=== PATIENT | female | born 1940 | race Caucasian/White ===

== ENCOUNTER 2019-08-22 18:49 | Inpatient (IN) | payer MEDICARE, OTHER ==
[~2019-08-22] VITALS: Ht 160 cm; Wt 97.1 kg
[2019-08-22 19:50] LABS: BILIRUBIN,URINE NEG (NEG); CLARITY,URINE CLEAR; COLOR,URINE YELLOW; GLUCOSE,URINE NEG (NEG)
[2019-08-22 19:51] LABS: BACTERIA,URINE FEW /HPF (0-FEW); HYALINE CASTS, URINE OCC /HPF; NITRITE,URINE NEG (NEG); RBC,URINE RARE /HPF (0-2); SQUAMOUS EPITHELIAL CELL,UR OCC /LPF; UROBILINOGEN,URINE 0.2 mg/dL (0.2 mg/dL)
--- NOTE | 2019-08-22 19:58 | PHYS DOC ---
Past History Past Medical History: Anxiety, COPD, Dementia, GERD, Hypothyroid, Other Additional Past Medical Histor: CROHNS Past Surgical History: No Surgical History Alcohol Use: None Drug Use: None Adult General Chief Complaint Chief Complaint: MEDICAL CLEARANCE HPI HPI Patient is a 79-year-old female brought in by ambulance who basically is here for medical clearance so that she can be admitted to the behavioral health unit she has had increasing agitation trying to get to the exit at her nursing facility etc. etc. was compliant with treatment no trauma patient denies complaints Review of Systems Review of Systems Constitutional: Denies fever or chills [] Eyes: Denies change in visual acuity, redness, or eye pain [] HENT: Denies nasal congestion or sore throat [] Respiratory: Denies cough or shortness of breath [] Cardiovascular: No additional information not addressed in HPI [] GI: Denies abdominal pain, nausea, vomiting, bloody stools or diarrhea [] : Denies dysuria or hematuria [] Musculoskeletal: Denies back pain or joint pain [] Integument: Denies rash or skin lesions [] Neurologic: Denies headache, focal weakness or sensory changes [] Endocrine: Denies polyuria or polydipsia [] All other systems were reviewed and found to be within normal limits, except as documented in this note. Allergies Allergies Allergies Coded Allergies Type Severity Reaction Last Updated Verified Penicillins Allergy Unknown 08/22/19 Yes acetaminophen Allergy Unknown 08/22/19 Yes cephalexin Allergy Unknown 08/22/19 Yes codeine Allergy Unknown 08/22/19 Yes methylprednisolone Allergy Unknown 08/22/19 Yes prednisone Allergy Unknown 08/22/19 Yes Physical Exam Physical Exam Constitutional: Well developed, well nourished, no acute distress, non-toxic appearance. [] HENT: Normocephalic, atraumatic, bilateral external ears normal, oropharynx moist, no oral exudates, nose normal. [] Eyes: PERRLA, EOMI, conjunctiva normal, no discharge. [] Neck: Normal range of motion, no tenderness, supple, no stridor. [] Lungs & Thorax: Bilateral breath sounds clear to auscultation [] Abdomen: Bowel sounds normal, soft, no tenderness, no masses, no pulsatile masses. [] Skin: Warm, dry, no erythema, no rash. [] Back: No tenderness, no CVA tenderness. [] Extremities: No tenderness, no cyanosis, no clubbing, ROM intact, no edema. [] Neurologic: Alert and oriented 2, normal motor function, normal sensory function, no focal deficits noted. [] Psychologic: Affect normal, judgement normal, mood normal. [] Current Patient Data Vital Signs Vital Signs Date Time Temp Pulse Resp B/P (MAP) Pulse Ox O2 Delivery O2 Flow Rate FiO2 08/22/19 18:49 97.9 98 16 95 Room Air Lab Results Laboratory Tests Test 08/22/19 19:25 Urine Collection Type Unknown Urine Color Yellow Urine Clarity Clear Urine pH 5.5 Urine Specific Ranger 1.020 Urine Protein Neg (NEG-TRACE) Urine Glucose (UA) Neg mg/dL (NEG) Urine Ketones (Stick) Neg mg/dL (NEG) Urine Blood Neg (NEG) Urine Nitrite Neg (NEG) Urine Bilirubin Neg (NEG) Urine Urobilinogen Dipstick 0.2 mg/dL (0.2 mg/dL) Urine Leukocyte Esterase Trace (NEG) Urine RBC Rare /HPF (0-2) Urine WBC 1-4 /HPF (0-4) Urine Squamous Epithelial Cells Occ /LPF Urine Bacteria Few /HPF (0-FEW) Urine Hyaline Casts Occ /HPF EKG EKG []EKG shows a normal sinus rhythm rate of 92 no acute ischemic changes noted QTC 413 Radiology/Procedures Radiology/Procedures [] Course & Med Decision Making Course & Med Decision Making Pertinent Labs and Imaging studies reviewed. (See chart for details) []labs stable vitals stable pt calm and cooperative in the er medically clear for sbhu Dragon Disclaimer Dragon Disclaimer This electronic medical record was generated, in whole or in part, using a voice recognition dictation system. Departure Departure: Impression: Primary Impression: Dementia Disposition: 65 XFER TO PSYCH HOSP/UNIT Admitting Physician: Other Condition: STABLE Referrals: JACQUELINE ALFONSO MD (PCP) NOAH COCHRAN MD Aug 22, 2019 19:58
[2019-08-22 20:00] LABS: BASO % 0 % (0-3); EOS # 0.5 x10^3/uL (0.0-0.7); EOS % 7 % (0-3); HEMATOCRIT 36.9 % (36.0-47.0); HEMOGLOBIN 11.8 g/dL (12.0-15.5); LYMPH # 2.3 x10^3/uL (1.0-4.8); LYMPH % 33 % (24-48); MEAN CORPUSCULAR HEMOGLOBIN 29 pg (25-35); MEAN CORPUSCULAR HGB CONC 32 g/dL (31-37); MEAN CORPUSCULAR VOLUME 90 fL (79-100); MONO # 0.8 x10^3/uL (0.0-1.1); MONO % 12 % (0-9); NEUT # 3.4 x10^3uL (1.8-7.7); NEUT % 49 % (31-73); PLATELET COUNT 310 x10^3/uL (140-400); RED BLOOD COUNT 4.11 x10^6/uL (3.50-5.40); RED CELL DISTRIBUTION WIDTH 17.4 % (11.5-14.5)
[2019-08-22 20:17] LABS: ALBUMIN 3.4 g/dL (3.4-5.0); ALBUMIN/GLOBULIN RATIO 0.9 (1.0-1.7); CALCIUM 8.9 mg/dL (8.5-10.1); CREATININE 1.3 mg/dL (0.6-1.0); GFR 39.3; MAGNESIUM 2.1 mg/dL (1.8-2.4); POTASSIUM 4.4 mmol/L (3.5-5.1); TOTAL BILIRUBIN 0.2 mg/dL (0.2-1.0); TOTAL PROTEIN 7.4 g/dL (6.4-8.2)
--- NOTE | 2019-08-22 21:09 | EKG ---
[address] [address] Test Date: 2019-08-22 Test Time: 19:38:41 Pat Name: ANAHI BLANCA Department: Room: Gender: F [employer]: : 1940 Requested By: NOAH COCHRAN Order Number: [id number] Reading MD: Jr Solares MD Measurements Intervals [place] Rate: 92 P: 50 IL: 238 QRS: 28 QRSD: 72 T: 57 QT: 330 QTc: 413 Interpretive Statements SINUS RHYTHM PROLONGED [place] INTERVAL Electronically Signed On 08-23-2019 13:31:03 DOUBLE END [employer] OPERATOR by Jr Solares MD
[2019-08-22 21:35] VITALS: BP 155/93
[2019-08-22] MEDS ORDERED: POLYVINYL ALCOHOL 1.4% OPHTH SOLUTION 15ML BOTTLE. OU PRN (23:15)
[2019-08-22] MEDS ORDERED: FAMOTIDINE 20 MG TABLET PO PRN (23:15)
[2019-08-22] MEDS ORDERED: MAGNESIUM HYDROXIDE 2,400 MG/30 ML ORAL.SUSP. PO PRN (23:15)
[2019-08-22] MEDS ORDERED: MAGN400O7 PO (23:33)
[2019-08-22] MEDS ORDERED: BUSP30TA PO (23:33)
[2019-08-22] MEDS ORDERED: LEVO50TA5 PO (23:33)
[2019-08-22] MEDS ORDERED: LORA10TA3 PO (23:33)
[2019-08-22] MEDS ORDERED: POTA20TA4 PO (23:33)
[2019-08-22] MEDS ORDERED: SERT50TA PO (23:33)
[2019-08-22] MEDS ORDERED: POLY15DR27 EACHEYE (23:33)
[2019-08-22] MEDS ORDERED: FAMO20TA5 PO (23:33)
[2019-08-22] MEDS ORDERED: FURO40TA4 PO (23:33)
[2019-08-22] MEDS ORDERED: MELA3TAB43 PO (23:33)
[2019-08-22] MEDS ORDERED: MESA800T2 PO ×2 (23:33)
[2019-08-22] MEDS ORDERED: BUDE10.2 IH (23:33)
[2019-08-22] MEDS ORDERED: ALBU2.5V14 NEB (23:33)
[2019-08-22] MEDS ORDERED: TRAZ-120 PO (23:33)
[2019-08-22] MEDS ORDERED: ALBUTEROL SULFATE 2.5 MG/3 ML NEBU. NEB PRN (23:45)
[2019-08-23] MEDS ORDERED: ACETAMINOPHEN 325 MG TABLET PO PRN
[2019-08-23] MEDS ORDERED: METHYL SALICYLATE/MENTHOL TOPICAL OINTMENT 57GM TUBE. TP PRN
[2019-08-23] MEDS ORDERED: MAGNESIUM HYDROXIDE 2,400 MG/30 ML ORAL.SUSP. PO PRN
[2019-08-23] MEDS ORDERED: MAG HYDROX/AL HYDROX/SIMETH 30 ML ORAL.SUSP PO PRN
[2019-08-23 06:13] VITALS: BP 127/73
[2019-08-23] MEDS: busPIRone 15 MG TABLET. PO SCH ×2 (08:30→19:45)
[2019-08-23] MEDS: POTASSIUM CHLORIDE 20 MEQ TABLET.ER. PO SCH (08:31)
[2019-08-23] MEDS: FUROSEMIDE 40 MG TABLET PO SCH (08:31)
[2019-08-23] MEDS: LEVOTHYROXINE 50 MCG TABLET PO SCH (08:31)
[2019-08-23] MEDS: CETIRIZINE HCL 10 MG TABLET PO SCH (08:31)
[2019-08-23] MEDS: MESALAMINE 400 MG CAP.DRTAB. PO SCH ×2 (09:11→19:46)
[2019-08-23] MEDS: BUDESONIDE 0.5 MG/2 ML NEBU NEB SCH ×2 (12:14→20:00)
[2019-08-23] MEDS: ALBUTEROL SULFATE 2.5 MG/3 ML NEBU. NEB SCH ×2 (12:15→14:44)
--- NOTE | 2019-08-23 12:29 | CONS ---
DATE OF CONSULTATION: REASON FOR CONSULTATION: Medical management. HISTORY OF PRESENT ILLNESS: The patient an 79-year-old female patient, resident at [facility], who was admitted on account of being angry, agitated, exit seeking, restless, not redirectable, has insomnia, banging on doors, anxious, threatens to call police, verbally yelling out, all this in a background of major neurocognitive disorder. She is here for inpatient psychiatric stabilization. PAST MEDICAL HISTORY: Significant for chronic obstructive pulmonary disease, hypothyroidism, gastroesophageal reflux disease, Crohn's disease and insomnia. PAST SURGICAL HISTORY: Significant for appendectomy. ALLERGIES: She is allergic to PENICILLIN, ACETAMINOPHEN, CEPHALEXIN, CODEINE, METHYLPREDNISONE, PREDNISOLONE and PREDNISONE. MEDICATIONS: She is currently on following medications: She is on loratadine 10 mg once a day, albuterol sulfate 2.5 mg in 0.5 mL by nebulizer 4 times a day, sertraline or Zoloft 50 mg at bedtime, trazodone 50 mg at bedtime, buspirone 30 mg twice a day, potassium chloride 20 mEq daily, furosemide 40 mg once a day, Symbicort 160/4.5 two puffs twice a day, polyvinyl alcohol 1 drop to both eyes 4 times a day, famotidine 20 mg daily, magnesium hydroxide or milk of magnesia 30 mL p.o. daily p.r.n. for constipation, mesalamine 1600 mg daily, mesalamine 800 mg at bedtime. She is also on levothyroxine sodium 50 mcg once a day and melatonin 3 mg at bedtime. FAMILY HISTORY: Unremarkable. SOCIAL HISTORY: She is , has 2 sons. She does not smoke, drink alcohol or use any recreational drugs. REVIEW OF SYSTEMS: As per history of present illness. PHYSICAL EXAMINATION GENERAL: When I examined her this morning, she looked well and was clearly in no apparent respiratory distress, slightly pale. No jaundice, cyanosis, or thyromegaly. No jugular venous distension. No lower limb edema. VITAL SIGNS: Her heart rate was 79, blood pressure was 127/73, temperature was 97.6, respiratory rate was 22 and oxygen saturation was 91%. HEAD, EYES, EARS, NOSE AND THROAT: Showed normocephalic, atraumatic. NECK: Supple. HEART: Showed normal first and second heart sounds. No gallop or murmur. CHEST: Clear to auscultation. No crepitation or rhonchi. ABDOMEN: Markedly distended, soft, nontender. NEUROLOGIC: She was clearly demented, but all her cranial nerves are intact. EXTREMITIES: She moves extremities without difficulty. She ambulates with a walker. LABORATORY WORK: Showed that her white cell count was 7000, hemoglobin 12, hematocrit 36, MCV 90 and platelet count 310,000 with normal manual differential. Her chemistry showed a serum sodium 141, potassium 4.4, chloride 103, bicarbonate 32, anion gap of 6, BUN 13, creatinine 1.3, estimated GFR was 39 mL per minute. Her glucose was 87, calcium was 8.9, magnesium was 2.1. Total bilirubin, AST, ALT, alkaline phosphatase were normal. Total protein was 7.4, albumin was 3.4. Her urinalysis was essentially unremarkable. IMPRESSION: In summary, this is an 79-year-old female patient, resident at [facility], who was admitted on account of being angry, agitated, exit seeking, restless, not redirectable, banging on doors, anxious, threatens to call police, verbally yelling out all this in a background of major neurocognitive disorder. Medically, she has multiple medical problems including: A. Chronic obstructive pulmonary disease. B. Hypothyroidism. C. Gastroesophageal reflux disease. D. Crohn's disease. Medically, the patient seems to be all in all stable. Her vital signs are all within normal range as well as her lab works. I reviewed all her medication and her lab works and seemed to be appropriate and within acceptable range. I will follow obviously other lab works that are still pending and make any necessary recommendation. Thank you, Dr. Tabares for allowing me to participate in the care of this patient. JACQUELINE ALFONSO MD DR: SHANA/caryn JOB#: [id number] / [id number]
[2019-08-23 14:57] LABS: THYROID STIM HORMONE (TSH) 3.371 uIU/mL (0.358-3.740)
[2019-08-23 16:01] VITALS: BP 127/79
[2019-08-23 17:07] LABS: THYROXINE 7.4 ug/dL (4.5-12.0)
[2019-08-23] MEDS: risperiDONE 0.5 MG TABLET. PO PRN (17:08)
[2019-08-23] MEDS: traZODone 50 MG TABLET. PO SCH (19:45)
[2019-08-23] MEDS: DIVALPROEX 125 MG CAP.SPRINK PO SCH (19:45)
[2019-08-23] MEDS: SERTRALINE 50 MG TABLET. PO SCH (19:45)
[2019-08-23] MEDS: MELATONIN 3 MG TABLET PO SCH (19:45)
[2019-08-24 01:07] LABS: HEMOGLOBIN A1C 5.8 % (4.8-5.6)
--- NOTE | 2019-08-24 01:12 | PSYEV ---
DATE OF SERVICE: 08/22/2019 REASON FOR ADMISSION: This 79-year-old single female was admitted to inpatient program at [facility] from [facility] because of increased behavior problems, agitation, exit-seeking behaviors, restlessness and difficult to redirect, not sleeping and banging on the doors and also threatening to call the police and verbally abusive towards staff. CHIEF COMPLAINT: I am not a patient here, I am a visitor and she kept repeating not accepting that she is in the hospital that she is a patient. The patient also gets angry easily, poor impulse control, low frustration tolerance. HISTORY OF PRESENT ILLNESS: The patient has been a resident at [place] for a period of time, but the patient's behavior has worsened lately to the point she is unable to be managed there and not responding to any change in the medications. The patient apparently was seen by Dr. Tabares recent past and he is trying to adjust her medications. The patient since admission is exhibiting racing thoughts, increased agitation, hostile towards staff, very paranoid and suspicious and not trusting anyone and not accepting that she is a patient here. The patient also constantly pacing, walks with a walker. The patient apparently has a fairly intact remote memory, but significant short-term memory and confusion. The patient is unable to give much information except total denial that she has a problem. The patient is disoriented to surroundings. She did know that she was in the hospital. The patient was able to give much information with regard to her past. States that she was with 2 children. The patient also states two sisters and one brother. The patient also agitated easily, manic like behaviors. The patient denied of any alcoholism or any tobacco use in the past. PAST MEDICAL HISTORY: The patient has a history of COPD, hypothyroidism, Crohn's disease, chronic insomnia and GERD. ALLERGIES: THE PATIENT IS ALLERGIC TO PENICILLIN, ACETAMINOPHEN, CEPHALEXIN, CODEINE, METHYLPREDNISOLONE, PREDNISONE, AND PREDNISOLONE. CURRENT MEDICATIONS: Include Depakote 125 mg t.i.d., mesalamine 800 mg at night, melatonin 3 mg at night, trazodone 50 mg at night, Zoloft 50 mg at night, Risperdal 0.5 mg q. 6 hours p.r.n. The patient is also on mesalamine 1600 mg daily, Zyrtec 10 mg daily, BuSpar 30 mg b.i.d., potassium chloride 20 mEq daily, Lasix 40 mg daily, Ventolin 2.5 mg 4 times a day. She is also on Pulmicort 0.5 mg b.i.d., levothyroxine 50 mcg daily. She is also on Pepcid 20 mg daily p.r.n. The patient's lab reviewed. The patient's hemoglobin 11.8. The patient's creatinine level 1.3, iron 31, triglycerides 169, cholesterol 244, LDL 138, HDL 73. TSH was 3.3. PSYCHOSOCIAL HISTORY: The patient was not able to give much information except she is able to recall about her family members, she said she had two sisters and a brother. The patient also gets paranoid when she is asked about any questions, does not want to answer. The patient also has some grandiose ideations. FAMILY HISTORY: Noncontributory. MENTAL STATUS EXAMINATION: The patient appeared to be of her stated age, casually dressed, moderately obese, able to walk with a walker. The patient denies of any falls. Her speech was clear, monotone, decreased rate and rhythm. Her affect and mood showed she is comfortable by herself and able to talk to others, but when she was asked about her problems or questions, she gets more confused, more anxious, and irritable. The patient is also exhibiting paranoid ideation. The patient was able to orient herself to her surroundings. The patient's total denial stating that she is not in the hospital and she is a visitor and she is not a patient. The patient is unable to elaborate why she is making statements like that. The patient also gets annoyed easily when asked questions. The patient was not able to do serial 7's. The patient is disoriented, but able to say 08/2019 that was correct, did not know the date. The patient was able to recall 2/4 objects in 5 minutes. The patient admits to having racing thoughts. The patient also having problems with concentration and thinking. The patient's judgment is impaired, insight minimal. The patient appears to be functioning on an average level of intelligence. STRENGTHS: Fairly in good health, able to walk, able to communicate. WEAKNESSES: The patient is in total denial about her problems gets suspicious, paranoia, irritability, also somewhat threatening. ADMITTING DIAGNOSES: AXIS I: 1. 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 2. Anxiety disorder, unspecified. 3. Impulse control disorder, unspecified. AXIS II: None. AXIS III: Hypothyroidism, chronic obstructive pulmonary disease, Crohn's disease, gastroesophageal reflux disease, chronic insomnia. INITIAL TREATMENT PLAN: The patient will be admitted to the inpatient program. The patient will be seen by Dr. Colindres for her physical problems and will be seen by the psychiatrist daily. The patient will continue on the current medication listed above. The patient will be encouraged in all the activities including individual therapy, group therapy, activity therapy. LENGTH OF STAY: 7-10 days. YOEL ODONNELL MD DR: JUANA/caryn JOB#: [id number] / [id number]
[2019-08-24] MEDS: LEVOTHYROXINE 50 MCG TABLET PO SCH (05:43)
[2019-08-24 06:12] VITALS: BP 142/85
[2019-08-24] MEDS: busPIRone 15 MG TABLET. PO SCH ×2 (08:20→20:39)
[2019-08-24] MEDS: DIVALPROEX 125 MG CAP.SPRINK PO SCH ×3 (08:20→20:39)
[2019-08-24] MEDS: CETIRIZINE HCL 10 MG TABLET PO SCH (08:21)
[2019-08-24] MEDS: FUROSEMIDE 40 MG TABLET PO SCH (08:21)
[2019-08-24] MEDS: MESALAMINE 400 MG CAP.DRTAB. PO SCH ×2 (08:21→20:39)
[2019-08-24] MEDS: POTASSIUM CHLORIDE 20 MEQ TABLET.ER. PO SCH (08:21)
[2019-08-24] MEDS: BUDESONIDE 0.5 MG/2 ML NEBU NEB SCH ×2 (08:55→23:07)
[2019-08-24] MEDS: ALBUTEROL SULFATE 2.5 MG/3 ML NEBU. NEB SCH ×4 (08:55→23:07)
[2019-08-24] MEDS: risperiDONE 0.5 MG TABLET. PO PRN (15:10)
[2019-08-24 16:54] VITALS: BP 118/63
[2019-08-24] MEDS: traZODone 50 MG TABLET. PO SCH (20:39)
[2019-08-24] MEDS: MELATONIN 3 MG TABLET PO SCH (20:39)
[2019-08-24] MEDS: SERTRALINE 50 MG TABLET. PO SCH (20:39)
[2019-08-25] MEDS: LEVOTHYROXINE 50 MCG TABLET PO SCH (05:54)
[2019-08-25 05:58] VITALS: BP 122/78
[2019-08-25] MEDS: ALBUTEROL SULFATE 2.5 MG/3 ML NEBU. NEB SCH ×4 (06:06→22:56)
[2019-08-25] MEDS: MESALAMINE 400 MG CAP.DRTAB. PO SCH ×2 (08:36→20:13)
[2019-08-25] MEDS: POTASSIUM CHLORIDE 20 MEQ TABLET.ER. PO SCH (08:36)
[2019-08-25] MEDS: DIVALPROEX 125 MG CAP.SPRINK PO SCH ×3 (08:36→20:13)
[2019-08-25] MEDS: CETIRIZINE HCL 10 MG TABLET PO SCH (08:36)
[2019-08-25] MEDS: FUROSEMIDE 40 MG TABLET PO SCH (08:36)
[2019-08-25] MEDS: busPIRone 15 MG TABLET. PO SCH ×2 (08:36→20:13)
[2019-08-25] MEDS ORDERED: CHOLECALCIFEROL (VITAMIN D3) 50,000 UNIT CAPSULE PO SCH (09:00)
--- NOTE | 2019-08-25 09:21 | PN ---
DATE: 08/24/2019 SUBJECTIVE: The patient was seen today, met with the staff, chart reviewed. The patient continues to show behavior problems, threatening to leave, exit-seeking behaviors. She was confused most of the day, still claiming that she is a visitor here, not a patient. The patient was also augmentative, easily agitated and noncompliant with the treatment. OBSERVATION: Vital Signs: Temperature 98.2, blood pressure 142/185, pulse 75, respirations 20, O2 sat 95%. Slept about 7 hours last night. CURRENT MEDICATIONS: Include Depakote 125 mg t.i.d., melatonin 3 mg at night, trazodone 50 mg at night, Zoloft 50 mg at night, Risperdal 0.5 mg q. 6 hours p.r.n., buspirone 30 mg b.i.d. The patient showed some response to the Depakote. We will continue to evaluate. We will increase dose accordingly LABORATORY DATA: The patient's lab reviewed. ASSESSMENT: 1. 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 2. Anxiety disorder, unspecified. 3. Impulse control disorder, unspecified. PLAN: Continue with the current treatment plan. We will adjust the medication accordingly. LENGTH OF STAY: 7-10 days. YOEL ODONNELL MD DR: JUANA/caryn JOB#: [id number] / [id number]
[2019-08-25] MEDS: BUDESONIDE 0.5 MG/2 ML NEBU NEB SCH ×2 (09:58→22:56)
--- NOTE | 2019-08-25 10:28 | TX PLAN ---
Interdisciplinary Tx Plan Admission Information Aug 22, 2019 at 21:01 Legal Status (on Admission): Voluntary, DPOA DPOA/Guardian Name: Pérez Perez ANGELCLARKE Contact or [phone] (C) Other Contact Name: [facility] Other Contact Verified Code Status: DNR Allergies: Coded Allergies: acetaminophen (Verified Allergy, Intermediate, 08/23/19) TYLENOL#3 codeine (Verified Allergy, Intermediate, 08/23/19) TYLENOL #3 Penicillins (Verified Allergy, Unknown, 08/22/19) cephalexin (Verified Allergy, Unknown, 08/22/19) methylprednisolone (Verified Allergy, Unknown, 08/22/19) prednisone (Verified Allergy, Unknown, 08/22/19) Estimated Length of Stay: 10 Diagnoses Primary Diagnosis: Major Neurocognitive Disorder, Alzheimers Vascular with Delusions, Depression BD, Anxiety Disorder Unspecified, Impulse Control Disorder Unspecified Reasons for Admission: Aggressive, Agitated, Sig. 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 Pt. reports pt. got "super agitated" stated she was going home. Pt. feels he "works her up" due to always wanting to go home with him. Problems Active Problems: Per pt. intake, pt. was angry, agitated, exit seeking, restlessness, not redirectable, insomnia, banging on doors, anxious, threatens to call police, and verbally yelling out. Inactive Problems: Pt. is medication compliant. Pt Strengths/Limitations Ability for [place]: Poor Cognitive Functioning/Ability: Poor Communication Skills/Ability: Fair Financial Resources: Fair Insight/Judgement: Poor Intellectual Ability: Fair Physical Health: Poor Social Skills: Fair Stability in Family: Good Verbal Skills: Fair Discharge Criteria Discharge Criteria: Improved behavior, Improved mood/thought Preliminary Discharge Plan Preliminary DC Plan: Current Living Arrange. Special Precautions Special Precautions: Agitation/Assault Fall Risk: Moderate Initial D/C Plan Pt. will return to [facility] once stable. Identified Discharge Needs: Pt. will need follow up with PCP. Currently Utilized Resources Currently Utilized Resources/P: PCP - Dr. Ruff Psychiatrist - Dr. Tabares Identified Problems/Hx/Goals Objectives/Short-Term Goals Short Term Goals: Dec. Aggression, Dec. 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 Pt. reports pt. got "super agitated" stating she was going home. Pt. feels he "works her up" due to always wanting to go home with him. 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 Education: Pt. graduated from high school. Community Follow-up Pt. will need a follow up with her PCP. Community Provider/Family Inpu: Per pt. , "I hope they can get her mellowed out." "I don't want her to be a zombie." Treatment Plan Explained Patient/Spring Setter had this treatment plan explained to him/her as indicated by the signature below and has been given the opportunity to ask questions and make suggestions: Date: Patient/Spring Setter Signature: Patient/Spring Setter Decline: MELISSA Pan Aug 25, 2019 10:28
[2019-08-25 15:59] VITALS: BP 129/76
[2019-08-25] MEDS: risperiDONE 0.5 MG TABLET. PO PRN (16:07)
[2019-08-25] MEDS: SERTRALINE 50 MG TABLET. PO SCH (20:13)
[2019-08-25] MEDS: MELATONIN 3 MG TABLET PO SCH (20:13)
[2019-08-25] MEDS: risperiDONE 1 MG TABLET. PO SCH (20:14)
[2019-08-25] MEDS: traZODone 50 MG TABLET. PO SCH (20:14)
[2019-08-25] MEDS ORDERED: risperiDONE 2 MG TABLET. PO SCH (21:00)
--- NOTE | 2019-08-26 04:47 | PN ---
DATE: 08/25/2019 SUBJECTIVE: The patient was seen today, met with the staff, chart reviewed. Staff reports continued behavior problems, argumentative, demanding, increased confusion and also able to calm down and now she is able to hold a reasonable conversation and also she is much calmer and compliant with the treatment and taking her medications. OBSERVATION: VITAL SIGNS: Temperature 98, blood pressure 122/78, pulse 88, respirations 18, O2 sat 92%. GENERAL: Slept about 6 hours last night. The patient's appetite is good. The patient is not having any major physical complaints. LABORATORY DATA: The patient's lab reviewed. MEDICATIONS: The patient's current medications include Depakote 125 mg t.i.d., melatonin 3 mg at night, trazodone 50 mg at night, Zoloft 50 mg at night, Risperdal 0.5 mg q. 6 hours p.r.n., BuSpar 30 mg b.i.d. The patient is not having any side effects. ASSESSMENT: 1. Major neurocognitive disorder, most likely Alzheimer versus vascular with delusions, depression, behavioral disturbances. 2. Anxiety disorder, unspecified. 3. Impulse control disorder, unspecified. PLAN: To continue with the current treatment plan. LENGTH OF STAY: 7-10 days. YOEL ODONNELL MD DR: JUANA/caryn JOB#: [id number] / [id number]
[2019-08-26] MEDS: LEVOTHYROXINE 50 MCG TABLET PO SCH (05:11)
[2019-08-26 06:04] VITALS: BP 121/58
[2019-08-26] MEDS: DIVALPROEX 125 MG CAP.SPRINK PO SCH ×2 (08:07→21:12)
[2019-08-26] MEDS: risperiDONE 1 MG TABLET. PO SCH ×2 (08:07→21:12)
[2019-08-26] MEDS: MESALAMINE 400 MG CAP.DRTAB. PO SCH ×2 (08:08→21:13)
[2019-08-26] MEDS: POTASSIUM CHLORIDE 20 MEQ TABLET.ER. PO SCH (08:08)
[2019-08-26] MEDS: busPIRone 15 MG TABLET. PO SCH ×2 (08:08→21:12)
[2019-08-26] MEDS: CETIRIZINE HCL 10 MG TABLET PO SCH (08:08)
[2019-08-26] MEDS: FUROSEMIDE 40 MG TABLET PO SCH (08:08)
[2019-08-26] MEDS: BUDESONIDE 0.5 MG/2 ML NEBU NEB SCH ×2 (10:15→20:00)
[2019-08-26] MEDS: ALBUTEROL SULFATE 2.5 MG/3 ML NEBU. NEB SCH ×4 (10:15→22:03)
[2019-08-26] MEDS: risperiDONE 0.5 MG TABLET. PO PRN (13:47)
[2019-08-26 15:33] VITALS: BP 122/68
[2019-08-26] MEDS: SERTRALINE 50 MG TABLET. PO SCH (21:12)
[2019-08-26] MEDS: traZODone 50 MG TABLET. PO SCH (21:13)
[2019-08-26] MEDS: MELATONIN 3 MG TABLET PO SCH (21:13)
--- NOTE | 2019-08-27 04:37 | PN ---
DATE: 08/26/2019 SUBJECTIVE: The patient was seen today, met with the staff, chart reviewed. The patient continues to have problems, fluctuating mood, irritability, angry outburst. The patient also with brief periods of stability, more coherent, able to hold a conversation. OBSERVATION: VITAL SIGNS: Temperature 97.6, blood pressure 121/58, pulse 85, respirations 20, O2 sat 90%. GENERAL: Slept about 6 hours last night. The patient is not having any side effects. The patient has not had any falls since admission. ASSESSMENT: 1. 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 2. Anxiety disorder, unspecified. 3. Impulse control disorder, unspecified. PLAN: To continue with the treatment. LENGTH OF STAY: 7-10 days. YOEL ODONNELL MD DR: JUANA/caryn JOB#: [id number] / [id number]
[2019-08-27] MEDS: LEVOTHYROXINE 50 MCG TABLET PO SCH (05:45)
[2019-08-27 06:15] VITALS: BP 133/67
[2019-08-27] MEDS: ALBUTEROL SULFATE 2.5 MG/3 ML NEBU. NEB SCH ×4 (06:17→20:02)
[2019-08-27 07:47] LABS: ALBUMIN 2.8 g/dL (3.4-5.0); ALBUMIN/GLOBULIN RATIO 0.8 (1.0-1.7); ALK PHOS 83 U/L (46-116); ALT (SGPT) 12 U/L (14-59); ANION GAP 4 (6-14); AST (SGOT) 14 U/L (15-37); BASO % 0 % (0-3); BLOOD UREA NITROGEN 14 mg/dL (7-20); BUN/CREATININE RATIO 13 (6-20); CALCIUM 8.4 mg/dL (8.5-10.1); CARBON DIOXIDE 31 mmol/L (21-32); CHLORIDE 106 mmol/L (98-107); CREATININE 1.1 mg/dL (0.6-1.0); EOS # 0.4 x10^3/uL (0.0-0.7); EOS % 7 % (0-3); GFR 47.7; GLUCOSE 81 mg/dL (70-99); HEMATOCRIT 35.1 % (36.0-47.0); HEMOGLOBIN 11.1 g/dL (12.0-15.5); LYMPH # 1.6 x10^3/uL (1.0-4.8); LYMPH % 32 % (24-48); MEAN CORPUSCULAR HEMOGLOBIN 29 pg (25-35); MEAN CORPUSCULAR HGB CONC 32 g/dL (31-37); MEAN CORPUSCULAR VOLUME 91 fL (79-100); MONO # 0.5 x10^3/uL (0.0-1.1); MONO % 10 % (0-9); NEUT # 2.6 x10^3uL (1.8-7.7); NEUT % 50 % (31-73); PLATELET COUNT 294 x10^3/uL (140-400); POTASSIUM 4.1 mmol/L (3.5-5.1); RED BLOOD COUNT 3.87 x10^6/uL (3.50-5.40); RED CELL DISTRIBUTION WIDTH 17.5 % (11.5-14.5); SODIUM 141 mmol/L (136-145); TOTAL BILIRUBIN 0.3 mg/dL (0.2-1.0); TOTAL PROTEIN 6.5 g/dL (6.4-8.2); WHITE BLOOD COUNT 5.2 x10^3/uL (4.0-11.0)
[2019-08-27 07:56] LABS: VAL ACID 45 mcg/mL (50-100)
[2019-08-27] MEDS: busPIRone 15 MG TABLET. PO SCH ×2 (08:19→19:47)
[2019-08-27] MEDS: MESALAMINE 400 MG CAP.DRTAB. PO SCH ×2 (08:19→19:46)
[2019-08-27] MEDS: POTASSIUM CHLORIDE 20 MEQ TABLET.ER. PO SCH (08:19)
[2019-08-27] MEDS: CETIRIZINE HCL 10 MG TABLET PO SCH (08:20)
[2019-08-27] MEDS: FUROSEMIDE 40 MG TABLET PO SCH (08:20)
[2019-08-27] MEDS: risperiDONE 1 MG TABLET. PO SCH ×2 (08:20→19:47)
[2019-08-27] MEDS: DIVALPROEX 125 MG CAP.SPRINK PO SCH ×2 (08:21→19:46)
[2019-08-27] MEDS: BUDESONIDE 0.5 MG/2 ML NEBU NEB SCH ×2 (10:08→20:02)
[2019-08-27 10:53] LABS: % ATYL 8 % (0-0); % EOS 4 % (0-5); % LYMPHS 29 % (24-48); % MONOS 5 % (0-10); % SEGS 54 % (35-66); PLT ESTIMATE ADEQUATE (ADEQUATE)
[2019-08-27 15:39] VITALS: BP 126/74
[2019-08-27] MEDS: SERTRALINE 50 MG TABLET. PO SCH (19:46)
[2019-08-27] MEDS: MELATONIN 3 MG TABLET PO SCH (19:46)
[2019-08-27] MEDS: traZODone 50 MG TABLET. PO SCH (19:47)
--- NOTE | 2019-08-28 01:07 | PN ---
DATE: 08/27/2019 SUBJECTIVE: The patient was seen today, met with the staff, chart reviewed. Staff reports continued behavior problems, restlessness, difficult to redirect, having some difficulty with sleep, non-redirectable. The patient continues to have problems with increased anxiety, agitation and exit-seeking behaviors. Otherwise, she is compliant with the medications. OBSERVATION: VITAL SIGNS: Temperature 97.6, blood pressure 121/58, pulse 85, respirations 20, O2 sat 90%. Slept about 6 hours last night. LABORATORY DATA: The patient's lab reviewed. MEDICATIONS: The patient's current medications include Risperdal 1.5 mg b.i.d., Depakote 250 mg b.i.d., melatonin 3 mg at night, trazodone 50 mg at night, Zoloft 50 mg at night, BuSpar 30 mg b.i.d. and she is also on Risperdal 0.5 mg q.6 hours p.r.n. The patient is not having any side effects. ASSESSMENT: 1. 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 2. Anxiety disorder, unspecified. 3. Impulse control disorder, unspecified. PLAN: To continue with the treatment. LENGTH OF STAY: 7-10 days. YOEL ODONNELL MD DR: JUANA/caryn JOB#: [id number] / [id number]
[2019-08-28 05:52] VITALS: BP 94/54
[2019-08-28] MEDS: LEVOTHYROXINE 50 MCG TABLET PO SCH (06:02)
[2019-08-28] MEDS: DIVALPROEX 125 MG CAP.SPRINK PO SCH ×2 (09:17→19:51)
[2019-08-28] MEDS: risperiDONE 1 MG TABLET. PO SCH ×2 (09:19→19:51)
[2019-08-28] MEDS: busPIRone 15 MG TABLET. PO SCH ×2 (09:19→19:51)
[2019-08-28] MEDS: POTASSIUM CHLORIDE 20 MEQ TABLET.ER. PO SCH (09:20)
[2019-08-28] MEDS: FUROSEMIDE 40 MG TABLET PO SCH (09:20)
[2019-08-28] MEDS: CETIRIZINE HCL 10 MG TABLET PO SCH (09:20)
[2019-08-28] MEDS: MESALAMINE 400 MG CAP.DRTAB. PO SCH ×2 (09:21→19:52)
[2019-08-28] MEDS: ALBUTEROL SULFATE 2.5 MG/3 ML NEBU. NEB SCH ×4 (10:56→20:53)
[2019-08-28] MEDS: BUDESONIDE 0.5 MG/2 ML NEBU NEB SCH ×2 (10:56→20:53)
[2019-08-28 16:13] VITALS: BP 119/77
[2019-08-28] MEDS: traZODone 50 MG TABLET. PO SCH (19:51)
[2019-08-28] MEDS: SERTRALINE 50 MG TABLET. PO SCH (19:52)
[2019-08-28] MEDS: MELATONIN 3 MG TABLET PO SCH (19:52)
[2019-08-29] MEDS: ALBUTEROL SULFATE 2.5 MG/3 ML NEBU. NEB SCH ×4 (05:13→22:03)
[2019-08-29] MEDS: BUDESONIDE 0.5 MG/2 ML NEBU NEB SCH ×2 (05:13→22:03)
[2019-08-29] MEDS: LEVOTHYROXINE 50 MCG TABLET PO SCH (05:14)
[2019-08-29 05:30] VITALS: BP 149/85
[2019-08-29] MEDS: busPIRone 15 MG TABLET. PO SCH ×2 (07:45→20:04)
[2019-08-29] MEDS: MESALAMINE 400 MG CAP.DRTAB. PO SCH ×2 (07:45→20:04)
[2019-08-29] MEDS: FUROSEMIDE 40 MG TABLET PO SCH (07:46)
[2019-08-29] MEDS: DIVALPROEX 125 MG CAP.SPRINK PO SCH ×2 (07:46→20:04)
[2019-08-29] MEDS: risperiDONE 1 MG TABLET. PO SCH ×2 (07:46→20:04)
[2019-08-29] MEDS: POTASSIUM CHLORIDE 20 MEQ TABLET.ER. PO SCH (07:46)
[2019-08-29] MEDS: CETIRIZINE HCL 10 MG TABLET PO SCH (07:47)
--- NOTE | 2019-08-29 10:00 | PN ---
DATE: 08/28/2019 SUBJECTIVE: The patient was seen today, I met with the staff, chart reviewed. The patient continues to show improvement. The patient still has severe cognitive deficits. She is distracted easily, but she is less confused. She is able to hold herself to her surroundings, interacts with the staff on 1:1, able to communicate. OBSERVATION: VITAL SIGNS: Temperature 97.7, blood pressure 94/54, pulse 97, respirations 22, O2 sat 91%. GENERAL: Slept about 7-1/2 hours last night. The patient's appetite has improved. LABORATORY DATA: The patient's lab reviewed. MEDICATIONS: The patient's current medications include Risperdal 1.5 mg b.i.d. p.o., Depakote 250 mg b.i.d., melatonin 3 mg at night and trazodone 50 mg at night. The patient is also on Zoloft 50 mg at night, BuSpar 30 mg b.i.d. and Risperdal 0.5 mg q. 6 hours p.r.n. The patient denies of any side effects. ASSESSMENT: 1. 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 2. Anxiety disorder, unspecified. 3. Impulse control disorder, unspecified. PLAN: To continue with the treatment. LENGTH OF STAY: 7-10 days. YOEL ODONNELL MD DR: JUANA/caryn JOB#: [id number] / [id number]
[2019-08-29 15:31] VITALS: BP 150/76
[2019-08-29] MEDS: risperiDONE 0.5 MG TABLET. PO PRN (16:40)
[2019-08-29] MEDS: SERTRALINE 50 MG TABLET. PO SCH (20:04)
[2019-08-29] MEDS: MELATONIN 3 MG TABLET PO SCH (20:04)
[2019-08-29] MEDS: traZODone 50 MG TABLET. PO SCH (20:04)
[2019-08-29] MEDS ORDERED: NYSTATIN TOPICAL POWDER 15GM BOTTLE. TP PRN (22:15)
--- NOTE | 2019-08-30 01:22 | PN ---
DATE: 08/29/2019 SUBJECTIVE: The patient was seen today, met with the staff, chart reviewed. Staff reports no major behavior problems. She is still withdrawn, significant cognitive deficits. She is still having delusion that she is here as a visitor and not as a patient. The patient also having difficulty processing information. The patient also exhibited some emotional lability. OBSERVATION: VITAL SIGNS: Temperature 98.4, blood pressure 149/85, pulse 89, respirations 20, O2 sat 90%. Slept about 8 hours last night. The patient is not having any side effects. LABORATORY DATA: The patient's lab reviewed. MEDICATIONS: The patient's current medications include Risperdal 1.5 mg b.i.d., Depakote 250 mg b.i.d., melatonin 3 mg at night and trazodone 50 mg at night. The patient is also on Zoloft 50 mg at night, BuSpar 30 mg b.i.d. and Risperdal 0.5 mg q. 6 hours p.r.n. ASSESSMENT: 1. 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 2. Anxiety disorder, unspecified. 3. Impulse control disorder, unspecified. PLAN: To continue with the treatment. LENGTH OF STAY: 7-10 days. YOEL ODONNELL MD DR: JUANA/caryn JOB#: [id number] / [id number]
[2019-08-30 05:22] VITALS: BP 123/77
[2019-08-30] MEDS: ALBUTEROL SULFATE 2.5 MG/3 ML NEBU. NEB SCH ×4 (05:48→20:23)
[2019-08-30] MEDS: LEVOTHYROXINE 50 MCG TABLET PO SCH (05:49)
[2019-08-30] MEDS: DIVALPROEX 125 MG CAP.SPRINK PO SCH ×2 (08:34→20:02)
[2019-08-30] MEDS: risperiDONE 1 MG TABLET. PO SCH ×2 (08:34→20:02)
[2019-08-30] MEDS: MESALAMINE 400 MG CAP.DRTAB. PO SCH ×2 (08:34→20:05)
[2019-08-30] MEDS: FUROSEMIDE 40 MG TABLET PO SCH (08:35)
[2019-08-30] MEDS: POTASSIUM CHLORIDE 20 MEQ TABLET.ER. PO SCH (08:35)
[2019-08-30] MEDS: CETIRIZINE HCL 10 MG TABLET PO SCH (08:35)
[2019-08-30] MEDS: busPIRone 15 MG TABLET. PO SCH ×2 (08:35→20:02)
[2019-08-30] MEDS: BUDESONIDE 0.5 MG/2 ML NEBU NEB SCH ×2 (10:26→20:23)
[2019-08-30 13:57] LABS: BACTERIA,URINE FEW /HPF (0-FEW); BILIRUBIN,URINE NEG (NEG); CLARITY,URINE CLEAR; COLOR,URINE YELLOW; GLUCOSE,URINE NEG (NEG); HYALINE CASTS, URINE FEW /HPF; NITRITE,URINE NEG (NEG); RBC,URINE RARE /HPF (0-2); SQUAMOUS EPITHELIAL CELL,UR FEW /LPF; UROBILINOGEN,URINE 0.2 mg/dL (0.2 mg/dL)
[2019-08-30 15:56] VITALS: BP 133/82
[2019-08-30] MEDS: risperiDONE 0.5 MG TABLET. PO PRN (16:34)
[2019-08-30] MEDS: MELATONIN 3 MG TABLET PO SCH (20:02)
[2019-08-30] MEDS: SERTRALINE 50 MG TABLET. PO SCH (20:02)
[2019-08-30] MEDS: traZODone 50 MG TABLET. PO SCH (20:02)
--- NOTE | 2019-08-30 22:02 | PDOC ---
Exam Note: Alfonzo Note: Please also refer to the separate dictated note~for this date of service dictated separately.~Patient seen individually. Discussed the patient with Nursing staff reviewed the chart.~Reviewed interim history and current functioning. Reviewed vital signs,~Labs/ Radiology~and current medications noted below. Continue current treatment with the changes noted in the dictated addendum note Assessment: Vital Signs/I&O: Vital Signs Date Time Temp Pulse Resp B/P (MAP) Pulse Ox O2 Delivery O2 Flow Rate FiO2 08/30/19 20:25 97 Room Air 08/30/19 15:56 97.5 94 16 133/82 (99) I & O 08/29/19 08/29/19 08/30/19 15:00 23:00 07:00 Intake Total 720 ml 240 ml 0 ml Balance 720 ml 240 ml 0 ml Labs: Laboratory Tests Test 08/30/19 13:10 Urine Collection Type Unknown Urine Color Yellow Urine Clarity Clear Urine pH 5.5 Urine Specific [place] 1.015 Urine Protein Neg (NEG-TRACE) Urine Glucose (UA) Neg mg/dL (NEG) Urine Ketones (Stick) Neg mg/dL (NEG) Urine Blood Neg (NEG) Urine Nitrite Neg (NEG) Urine Bilirubin Neg (NEG) Urine Urobilinogen Dipstick 0.2 mg/dL (0.2 mg/dL) Urine Leukocyte Esterase Trace (NEG) Urine RBC Rare /HPF (0-2) Urine WBC 1-4 /HPF (0-4) Urine Squamous Epithelial Cells Few /LPF Urine Bacteria Few /HPF (0-FEW) Urine Hyaline Casts Few /HPF Urine Mucus Slight /LPF Current Medications: I have reviewed the current psychotropics carefully including drug interactions. Risk benefit ratio favors no change other than as noted in my dictated progress note. Diagnosis: Problems: (1) Major neurocognitive disorder, due to vascular disease, with behavioral disturbance, mild (2) Dementia, vascular, with delusions (3) Dementia, vascular, with depression (4) Dementia in Alzheimer's disease with delusions (5) Dementia in Alzheimer's disease with depression (6) Anxiety disorder, unspecified (7) Impulse disorder, unspecified MARTA RODRIGUEZ MD Aug 30, 2019 22:02
[2019-08-31] MEDS: LEVOTHYROXINE 50 MCG TABLET PO SCH (05:12)
[2019-08-31 05:20] VITALS: BP 122/66
[2019-08-31] MEDS: FUROSEMIDE 40 MG TABLET PO SCH (08:17)
[2019-08-31] MEDS: POTASSIUM CHLORIDE 20 MEQ TABLET.ER. PO SCH (08:17)
[2019-08-31] MEDS: MESALAMINE 400 MG CAP.DRTAB. PO SCH ×2 (08:17→20:37)
[2019-08-31] MEDS: risperiDONE 1 MG TABLET. PO SCH ×2 (08:18→20:36)
[2019-08-31] MEDS: CETIRIZINE HCL 10 MG TABLET PO SCH (08:18)
[2019-08-31] MEDS: DIVALPROEX 125 MG CAP.SPRINK PO SCH ×2 (08:18→20:35)
[2019-08-31] MEDS: busPIRone 15 MG TABLET. PO SCH ×2 (08:18→20:36)
[2019-08-31] MEDS: ALBUTEROL SULFATE 2.5 MG/3 ML NEBU. NEB SCH ×4 (10:12→20:50)
[2019-08-31] MEDS: BUDESONIDE 0.5 MG/2 ML NEBU NEB SCH ×2 (10:12→20:50)
[2019-08-31] MEDS ORDERED: ONDANSETRON ODT 4 MG TAB.RAPDIS PO PRN (11:45)
[2019-08-31 16:25] VITALS: BP 112/60
[2019-08-31 19:16] LABS: HEMATOCRIT 36.4 % (36.0-47.0); HEMOGLOBIN 11.5 g/dL (12.0-15.5); RED BLOOD COUNT 4.02 x10^6/uL (3.50-5.40); RED CELL DISTRIBUTION WIDTH 17.6 % (11.5-14.5); WHITE BLOOD COUNT 7.6 x10^3/uL (4.0-11.0)
[2019-08-31 19:33] LABS: ALBUMIN/GLOBULIN RATIO 0.8 (1.0-1.7); CALCIUM 9.1 mg/dL (8.5-10.1); CREATININE 1.2 mg/dL (0.6-1.0); GFR 43.1; POTASSIUM 4.2 mmol/L (3.5-5.1); TOTAL BILIRUBIN 0.3 mg/dL (0.2-1.0); TOTAL PROTEIN 6.9 g/dL (6.4-8.2)
--- NOTE | 2019-08-31 20:21 | RAD ---
CHEST AP ONLY Clinical Indication: Hypoxia, weakness Comparison: None. Findings: The cardiomediastinal silhouette is normal. There are bibasilar opacities. There is probably a component of atelectasis. Some of this appearance could be due to eventration of the diaphragm. There is no pneumothorax. No pleural effusion is appreciated. No acute bone abnormality. IMPRESSION: Mild bibasilar airspace disease. Electronically signed by: Moe Vallejo MD (08/31/2019 8:18 PM) [facility]
[2019-08-31] MEDS: MELATONIN 3 MG TABLET PO SCH (20:36)
[2019-08-31] MEDS: traZODone 50 MG TABLET. PO SCH (20:36)
[2019-08-31] MEDS: SERTRALINE 50 MG TABLET. PO SCH (20:36)
--- NOTE | 2019-08-31 22:45 | PN ---
DATE: 08/30/2019 PSYCHIATRIC PROGRESS NOTE This late entry, 08/30/2019, covers elements not covered in my initial note. SUBJECTIVE: I met with the patient in the evening. Reviewed information from Dr. Patel, who had covered for me over the past 1 week or so. REVIEW OF SYSTEMS: Ambulation impaired with walker. No CV, , pulmonary, eye system symptoms on review. MENTAL STATUS EXAM: Oriented to herself. Insight, judgment, recent and remote memory, attention, concentration, fund of knowledge poor, consistent with her diagnosis. On direct questioning, she felt the year was 2020 and she was in [place]. LABORATORY DATA: Reviewed. IMPRESSION: Major neurocognitive disorder, Alzheimer, vascular with delusion, depression, behavioral disturbance; anxiety disorder, unspecified; impulse control disorder, unspecified. Rest unchanged. PLAN: No change from initial note. Maintain BuSpar, melatonin, Zoloft, Risperdal, Depakote Sprinkles, may consider gradually reducing scheduled Risperdal at 1.5 mg b.i.d. ADDENDUM Per KAYLYNN Lubin, the patient slept 6-3/4 hours the previous night. UA has been checked. We will await results. She takes a long time to take her medications. Valproic acid level is subtherapeutic at 45 on Depakote Sprinkle 125 t.i.d., we will increase to 250 b.i.d.; check CBC, CMP, valproic acid level in 3 days and gradually reduce the Risperdal. Rest unchanged. MARTA RODRIGUEZ MD DR: ALIVIA/caryn JOB#: [id number] / [id number]
--- NOTE | 2019-08-31 23:28 | PDOC ---
Exam Note: Alfonzo Note: Please also refer to the separate dictated note~for this date of service dictated separately.~Patient seen individually. Discussed the patient with Nursing staff reviewed the chart.~Reviewed interim history and current functioning. Reviewed vital signs,~Labs/ Radiology~and current medications noted below. Continue current treatment with the changes noted in the dictated addendum note Assessment: Vital Signs/I&O: Vital Signs Date Time Temp Pulse Resp B/P (MAP) Pulse Ox O2 Delivery O2 Flow Rate FiO2 08/31/19 20:55 97 Nasal Cannula 08/31/19 16:25 97.3 100 18 112/60 (77) I & O 08/30/19 08/30/19 08/31/19 15:00 23:00 07:00 Intake Total 600 ml 420 ml Balance 600 ml 420 ml Labs: Laboratory Tests Test 08/31/19 19:10 White Blood Count 7.6 x10^3/uL (4.0-11.0) Red Blood Count 4.02 x10^6/uL (3.50-5.40) Hemoglobin 11.5 g/dL (12.0-15.5) L Hematocrit 36.4 % (36.0-47.0) Mean Corpuscular Volume 91 fL (79-100) Mean Corpuscular Hemoglobin 29 pg (25-35) Mean Corpuscular Hemoglobin Concent 32 g/dL (31-37) Red Cell Distribution Width 17.6 % (11.5-14.5) H Platelet Count 278 x10^3/uL (140-400) Sodium Level 143 mmol/L (136-145) Potassium Level 4.2 mmol/L (3.5-5.1) Chloride Level 105 mmol/L (98-107) Carbon Dioxide Level 34 mmol/L (21-32) H Anion Gap 4 (6-14) L Blood Urea Nitrogen 18 mg/dL (7-20) Creatinine 1.2 mg/dL (0.6-1.0) H Estimated GFR (Cockcroft-Gault) 43.1 BUN/Creatinine Ratio 15 (6-20) Glucose Level 99 mg/dL (70-99) Calcium Level 9.1 mg/dL (8.5-10.1) Total Bilirubin 0.3 mg/dL (0.2-1.0) Aspartate Amino Transferase (AST) 24 U/L (15-37) Alanine Aminotransferase (ALT) 18 U/L (14-59) Alkaline Phosphatase 79 U/L (46-116) Total Protein 6.9 g/dL (6.4-8.2) Albumin 3.0 g/dL (3.4-5.0) L Albumin/Globulin Ratio 0.8 (1.0-1.7) L Current Medications: Meds: Current Medications Medications (Trade) Dose Ordered Sig/Pierre Route PRN Reason Start Time Stop Time Status Last Admin Dose Admin Ondansetron HCl (Zofran Odt) 4 mg PRN Q8HRS PRN PO NAUSEA/VOMITING 08/31/19 11:45 08/31/19 11:48 I have reviewed the current psychotropics carefully including drug interactions. Risk benefit ratio favors no change other than as noted in my dictated progress note. Diagnosis: Problems: (1) Anxiety disorder, unspecified (2) Dementia, vascular, with depression (3) Dementia, vascular, with delusions (4) Impulse disorder, unspecified (5) Dementia in Alzheimer's disease with depression (6) Dementia in Alzheimer's disease with delusions (7) Major neurocognitive disorder, due to vascular disease, with behavioral disturbance, mild MARTA RODRIGUEZ MD Aug 31, 2019 23:28
[2019-09-01] MEDS: ALBUTEROL SULFATE 2.5 MG/3 ML NEBU. NEB SCH (04:45)
[2019-09-01] MEDS: LEVOTHYROXINE 50 MCG TABLET PO SCH (05:55)
[2019-09-01 06:21] VITALS: BP 112/63
[2019-09-01] MEDS ORDERED: ALBU2.5V14 NEB (06:31)
[2019-09-01] MEDS ORDERED: DIVA125C2 PO (06:32)
[2019-09-01] MEDS ORDERED: RISP1TAB43 PO (06:33)
[2019-09-01] MEDS ORDERED: RISP0.5T24 PO (06:34)
[2019-09-01] MEDS ORDERED: ONDA4TAB12 PO (06:36)
[2019-09-01] MEDS ORDERED: CHOL500021 PO (06:39)
[2019-09-01] MEDS ORDERED: NYST15PO9 TP (06:41)
--- NOTE | 2019-09-01 20:35 | PDOC ---
Exam Note: Alfonzo Note: Please also refer to the separate dictated note~for this date of service dictated separately.~Patient seen individually. Discussed the patient with Nursing staff reviewed the chart.~Reviewed interim history and current functioning. Reviewed vital signs,~Labs/ Radiology~and current medications noted below. Continue current treatment with the changes noted in the dictated addendum note Assessment: Vital Signs/I&O: Vital Signs Date Time Temp Pulse Resp B/P (MAP) Pulse Ox O2 Delivery O2 Flow Rate FiO2 09/01/19 06:21 97.3 89 20 112/63 (79) 96 09/01/19 04:45 Nasal Cannula I & O 08/31/19 08/31/19 09/01/19 15:00 23:00 07:00 Intake Total 480 ml 240 ml Balance 480 ml 240 ml Labs: Laboratory Tests Test 09/01/19 07:15 D-Dimer (Nany) 9.47 mg/L (0.00-0.50) H Lactic Acid Level 1.2 mmol/L (0.4-2.0) Lactate Dehydrogenase 148 U/L (81-234) Lipase 80 U/L (73-393) Current Medications: I have reviewed the current psychotropics carefully including drug interactions. Risk benefit ratio favors no change other than as noted in my dictated progress note. Diagnosis: Problems: (1) Anxiety disorder, unspecified (2) Dementia, vascular, with depression (3) Dementia, vascular, with delusions (4) Impulse disorder, unspecified (5) Dementia in Alzheimer's disease with depression (6) Dementia in Alzheimer's disease with delusions (7) Major neurocognitive disorder, due to vascular disease, with behavioral disturbance, mild MARTA RODRIGUEZ MD Sep 01, 2019 20:35
--- NOTE | 2019-09-02 09:59 | DS ---
DATE OF DISCHARGE: 09/01/2019 PSYCHIATRIC PROGRESS NOTE This late entry 09/01/2019 covers elements not covered in my initial note. REASON FOR ADMISSION: Please refer to the admission history for details. Briefly, the patient is an 79-year-old female referred to us from [facility] by Dr. Ruff, her primary care physician for being extremely angry, agitated, exit seeking, restless, nonredirectable. She was banging on doors, had marked insomnia, anxious, threatened to call police, verbally yelling out. Behaviors were deemed unmanageable. She had failed outpatient psychiatric interventions resulting in this referral. SIGNIFICANT FINDINGS AND CLINICAL COURSE: Following admission, the patient was seen daily individually by myself from a psychiatric standpoint and Dr. Galvan covered during my absence, medical followup with Dr. Ruff. The patient was noted to have memory deficits, confusion with marked mood lability, anxiety. She was quite paranoid as well. Adjustments were made in her psychotropics and she seemed to respond to a combination of BuSpar 30 mg b.i.d., melatonin 3 mg at bedtime, trazodone 50 mg at bedtime, Zoloft 50 mg a day, Risperdal was 1.5 mg b.i.d., but was discontinued prior to the patient's transfer to the ICU and she was on Depakote Sprinkles 250 b.i.d. Overall, she was psychiatrically showing improvement, but had medical deterioration with questionable pneumonia or pulmonary embolism and was transferred to the ICU per Dr. Ruff. Prior to discharge, oriented to herself, somewhat withdrawn. Insight, judgment, recent memory is impaired. Language function intact. Attention span short. Mood and affect depressed, withdrawn. No active suicidal or homicidal ideation. LABORATORY DATA: Reviewed. FINAL DIAGNOSES: Major depressive disorder, recurrent with psychotic features; major neurocognitive disorder; early Alzheimer, vascular with delusion; depression; anxiety disorder, unspecified; impulse control disorder, unspecified. Rest as above including probable pneumonia. DISCHARGE MEDICATIONS: Please refer to the MRAD. Psychiatric and medical followup in the ICU. Time for discharge day management greater than 30 minutes. MARTA RODRIGUEZ MD DR: ALIVIA/caryn JOB#: [id number] / [id number]
--- NOTE | 2019-09-02 23:00 | PN ---
DATE: 08/31/2019 This late entry 08/31/2019 covers elements not covered in my initial note. SUBJECTIVE: I met with the patient in the evening. Per Jose Manuel RN, the patient slept 7-1/4 hours previous night. She has been somewhat drowsy, had vomiting x 1. Deferred to Dr. Ruff. REVIEW OF SYSTEMS: Positive for tiredness, met with her in her room. No CV, , pulmonary, eye system symptoms on review other than above. MENTAL STATUS EXAM: Oriented to herself, at times situation. Speech moderate latency, often responses monosyllabic. Abstraction fair, computation impaired, language function intact. Mood and affect withdrawn. LABORATORY DATA: Reviewed. IMPRESSION: Unchanged from initial note. PLAN: No change from initial note. MAN Darius RODRIGUEZ MD DR: ALIVIA/caryn JOB#: [id number] / [id number]
== END 2019-09-01 08:00 | disposition short-term general hospital (02) | DRG 56 ==
LOC: ER 18:49 → GEROPSY 21:01
PROVIDERS: ADMIT Psychiatry & Neurology Psychiatry; ATTEND Psychiatry & Neurology Psychiatry
DX: G30.9 Alzheimer's disease, unspecified (principal); J18.9 Pneumonia, unspecified organism; F33.3 Major depressive disorder, recurrent, severe with psychotic symptoms; F01.51 Vascular dementia, unspecified severity, with behavioral disturbance; J44.0 Chronic obstructive pulmonary disease with (acute) lower respiratory infection; F02.81 Dementia in other diseases classified elsewhere, unspecified severity, with behavioral disturbance; K50.90 Crohn's disease, unspecified, without complications; F41.9 Anxiety disorder, unspecified; K21.9 Gastro-esophageal reflux disease without esophagitis; E03.9 Hypothyroidism, unspecified; Z88.6 Allergy status to analgesic agent; Z88.1 Allergy status to other antibiotic agents; Z88.0 Allergy status to penicillin; Z88.8 Allergy status to other drugs, medicaments and biological substances; Z90.49 Acquired absence of other specified parts of digestive tract; Z79.899 Other long term (current) drug therapy; F63.9 Impulse disorder, unspecified; F51.04 Psychophysiologic insomnia; Z91.19 Patient's noncompliance with other medical treatment and regimen
CPT/HCPCS: 36415; 71045; 80053; 80061; 80164; 81001; 82306; 82607; 83036; 83540; 83550; 83605; 83615; 83690; 83735; 84436; 84443; 84480; 85007; 85025; 85027; 85379; 86592; 87086; 87186; 93005; 94640; 94760; J7613; J7626; Q0162; 97116; 99285-25

== ENCOUNTER 2019-09-01 08:01 | Inpatient (IN) | payer MEDICARE, OTHER ==
[~2019-09-01] VITALS: Ht 160 cm; Wt 97.1 kg
[2019-09-01] VITALS (13 sets, daily range): BP systolic 96–146; BP diastolic 48–73
[~2019-09-01 08:01] MED LIST: ALBU2.5V14 NEB; BUDE10.2 IH; BUSP30TA PO; CHOL500021 PO; DIVA125C2 PO; FAMO20TA5 PO; FURO40TA4 PO; LEVO50TA5 PO; LORA10TA3 PO; MAGN400O7 PO; MELA3TAB43 PO; MESA800T2 PO; NYST15PO9 TP; ONDA4TAB12 PO; POLY15DR27 EACHEYE; POTA20TA4 PO; RISP0.5T24 PO; RISP1TAB43 PO; SERT50TA PO; TRAZ-120 PO
[2019-09-01 09:31] LABS: ALBUMIN 2.9 g/dL (3.4-5.0); ALBUMIN/GLOBULIN RATIO 0.7 (1.0-1.7); CALCIUM 8.8 mg/dL (8.5-10.1); CREATININE 1.1 mg/dL (0.6-1.0); GFR 47.7; POTASSIUM 4.2 mmol/L (3.5-5.1); TOTAL BILIRUBIN 0.3 mg/dL (0.2-1.0)
[2019-09-01 09:32] LABS: BASO % 0 % (0-3); EOS # 0.2 x10^3/uL (0.0-0.7); EOS % 4 % (0-3); HEMATOCRIT 35.5 % (36.0-47.0); HEMOGLOBIN 11.3 g/dL (12.0-15.5); LYMPH # 1.1 x10^3/uL (1.0-4.8); LYMPH % 18 % (24-48); MEAN CORPUSCULAR HEMOGLOBIN 29 pg (25-35); MEAN CORPUSCULAR HGB CONC 32 g/dL (31-37); MEAN CORPUSCULAR VOLUME 92 fL (79-100); MONO # 0.8 x10^3/uL (0.0-1.1); MONO % 12 % (0-9); NEUT # 4.2 x10^3uL (1.8-7.7); NEUT % 66 % (31-73); PLATELET COUNT 240 x10^3/uL (140-400); RED BLOOD COUNT 3.88 x10^6/uL (3.50-5.40); WHITE BLOOD COUNT 6.4 x10^3/uL (4.0-11.0)
[2019-09-01] MEDS ORDERED: IOHEXOL 350 MG/ML 100 ML VIAL. IV ONE ×2 (10:15→11:30)
[2019-09-01] MEDS ORDERED: POLYVINYL ALCOHOL 1.4% OPHTH SOLUTION 15ML BOTTLE. OU PRN (10:45)
[2019-09-01] MEDS ORDERED: NYSTATIN TOPICAL POWDER 15GM BOTTLE. TP PRN (10:45)
[2019-09-01] MEDS ORDERED: FAMOTIDINE 20 MG TABLET PO PRN (10:45)
[2019-09-01] MEDS ORDERED: MAGNESIUM HYDROXIDE 2,400 MG/30 ML ORAL.SUSP. PO PRN (10:45)
[2019-09-01] MEDS ORDERED: NON FORMULARY ITEM (Albuterol Sulfate (Albuterol Sulfate Conc Neb Soln) 2.5 MG) NEB PRN (10:45)
[2019-09-01] MEDS ORDERED: ONDANSETRON ODT 4 MG TAB.RAPDIS PO PRN (10:45)
[2019-09-01] MEDS: ENOXAPARIN ** NOTE DOSE ** SYRINGE SQ SCH ×2 (10:48→20:44)
[2019-09-01] MEDS: IV NORMAL SALINE 1,000ML 1,000 ML IV SCH ×2 (10:49→20:45)
[2019-09-01] MEDS ORDERED: ALBUTEROL SULFATE 2.5 MG/3 ML NEBU. ONE (10:50)
[2019-09-01] MEDS ORDERED: BUDESONIDE 0.5 MG/2 ML NEBU ONE (10:50)
[2019-09-01] MEDS: ALBUTEROL SULFATE 2.5 MG/3 ML NEBU. NEB SCH ×3 (11:00→20:10)
[2019-09-01] MEDS ORDERED: ALBUTEROL SULFATE 2.5 MG/3 ML NEBU. NEB PRN (11:15)
--- NOTE | 2019-09-01 12:11 | RAD ---
Chest CTA History: Elevated d-dimer Technique: After bolus of intravenous contrast, CT imaging was performed of the chest. Multiplanar reconstruction images to include MIP reconstruction images are submitted. Exposure: One or more of the following individualized dose reduction techniques were utilized for this examination: 1. Automated exposure control 2. Adjustment of the mA and/or kV according to patient size 3. Use of iterative reconstruction technique. Comparison: None Findings: There is some motion degradation. There are some smaller peripheral pulmonary emboli of the lower lobes bilaterally greater on the right. Upper lobe branches are not as well opacified for accurate evaluation. No pulmonary embolism is identified in the main pulmonary arteries. There is some atelectasis of the lower lobes bilaterally, also infiltrate of the right middle lobe. There is no pneumothorax. Thoracic aortic caliber is within normal limits, no defined intraluminal dissection flap. There is some coronary calcification. Right pretracheal node measures about 1 cm short axis dimension, borderline. Thoracic vertebral body stature is maintained. There is no pleural or pericardial effusion or pneumothorax. Impression: 1. There are peripheral pulmonary emboli of the lower lobes bilaterally. There is bilateral lower lobe atelectasis and right middle lobe infiltrate. 2. There is some coronary calcification. Findings discussed with patient's nurse Lori at 09/01/2019 12:07 PM. FOR INTERNAL CODING PURPOSES RESULT CODE: (C) Electronically signed by: Ernesto Hamilton MD (09/01/2019 12:08 PM) [id number]
--- NOTE | 2019-09-01 12:27 | RAD ---
VENOUS LOWER EXT BILATERAL History: Pulmonary emboli. Lower extremity pain. Comparison: CT September 01, 2019 Discussion: Multiple longitudinal and transverse high resolution real-time images of the venous system of bilateral lower extremity were obtained with color and Doppler sampling. The common femoral, superficial femoral, popliteal and proximal calf veins are all patent. Degraded evaluation due to patient inability to tolerate compression due to pain and body habitus. Impression: 1. Degraded evaluation. No evidence of deep vein thrombosis. Electronically signed by: Santana Bobo DO (09/01/2019 12:24 PM) [id number]
[2019-09-01] MEDS ORDERED: NON FORMULARY ITEM (Albuterol Sulfate (Albuterol Sulfate Conc Neb Soln) 2.5 MG) NEB SCH (13:00)
[2019-09-01] MEDS ORDERED: VANCOMYCIN 2 GM in IV NORMAL SALINE 500ML 500 ML IV ONE (13:30)
[2019-09-01] MEDS ORDERED: MEROPENEM 500 MG in IV NORMAL SALINE 50ML 50 ML IV SCH (14:00)
[2019-09-01] MEDS: VANCOMYCIN PER PHARMACY MC PRN (16:03)
--- NOTE | 2019-09-01 19:16 | HP ---
ADMIT DATE: 09/01/2019 HISTORY OF PRESENT ILLNESS: The patient is an 79-year-old female patient who was noted by the nursing staff at the [facility] to be hypoxic. Her oxygen saturation was now in the 70s, was put on 2 liters of oxygen that her oxygen saturation came up to 90%. The patient is very demented, does not give any useful information; however, the nursing staff contacted me and given that they noted that she has had history before of pulmonary embolism, I recommended to do lab work and CT angio of the chest and apparently her chest x-ray showed mild bibasilar airspace disease. The bilateral lower extremity venous Doppler ultrasound showed no evidence of deep vein thrombosis. CT angio of the chest showed that there are peripheral pulmonary emboli of the lower lobes bilaterally. There is bilateral lower lobe atelectasis and the right middle lobe infiltrate. There is some coronary calcification and therefore the patient was transferred to ICU, was started on IV antibiotic for healthcare-associated pneumonia as well as Lovenox. SHE IS ALLERGIC TO PENICILLIN, we started her on vancomycin as well as meropenem to be dosed by the pharmacist. PAST MEDICAL HISTORY: Significant for chronic obstructive pulmonary disease, hypothyroidism, gastroesophageal reflux disease, Crohn's disease, insomnia as well as history of pulmonary embolism. PAST SURGICAL HISTORY: Significant for appendectomy. ALLERGIES: SHE IS ALLERGIC TO PENICILLIN, ACETAMINOPHEN, CEPHALEXIN, CODEINE, METHYLPREDNISOLONE, PREDNISOLONE AND PREDNISONE. MEDICATIONS: She is currently on following medications: She is on vitamin D 50,000 international units once a week. She is on mesalamine 1600 mg daily, cetirizine 10 mg once a day, potassium chloride 20 mEq once a day, furosemide 40 mg once a day, levothyroxine sodium 50 mcg daily. She is on mesalamine 800 mg at bedtime, melatonin 3 mg at bedtime, trazodone 50 mg at bedtime, sertraline 50 mg at bedtime, divalproex 250 mg twice a day, Pulmicort 0.5 mg twice a day, albuterol sulfate 2.5 mg 4 times a day, artificial tears 1 drop to both eyes 4 times a day, ondansetron 4 mg every 8 hours, nystatin powder apply topically twice a day, magnesium hydroxide for milk of magnesia 30 mL p.o. daily p.r.n. for constipation, famotidine 20 mg once a day, Lovenox 100 mg twice a day and sodium chloride at 75 mL per hour. REVIEW OF SYSTEMS: As per history of present illness. FAMILY HISTORY: Noncontributory. She has two sisters and a brother. SOCIAL HISTORY: She is and currently resides at [facility]. PHYSICAL EXAMINATION: GENERAL: On arrival to the ICU, the patient looked sleepy, lethargic, but arousable. She was slightly pale. No jaundice, cyanosis or thyromegaly. No jugular venous distention. No limb edema. VITAL SIGNS: Her heart rate was 95, blood pressure was 146/69, temperature was 98.2, respiratory rate was 18, and oxygen saturation was 92% on 2 liters of oxygen. HEAD, EYES, EARS, NOSE AND THROAT: Showed normocephalic, atraumatic. NECK: Supple. HEART: Showed normal first and second heart sounds. No gallop or murmur. CHEST: Clear to auscultation. No crepitation or rhonchi. ABDOMEN: Distended, soft, nontender. No guarding or rigidity. No organomegaly. All hernial orifice intact. Bowel sounds normal. NEUROLOGIC: She was demented, but without any obvious lateralizing sign. She was able to ambulate with a walker; however, she has tendency to fall. LABORATORY DATA: Her lab work showed a white cell count of 6400, hemoglobin 11, hematocrit 35, MCV 92, and platelet count 240,000 with normal manual differential. Her chemistry showed serum sodium 142, potassium 4.2, chloride 104, bicarbonate 36, anion gap of 2, BUN of 17, creatinine 1.1, estimated GFR was 48 mL per minute. Her glucose was 84, calcium was 8.8. Total bilirubin 0.3. AST, ALT, alkaline phosphatase were normal. Her total protein was 7, albumin was 2.9. Her chest x-ray showed that the cardiomediastinal silhouette is normal. There are bibasilar opacities, probably a component of atelectasis. Some of this appearance could be due to eventration of the diaphragm. There is no pneumothorax, no pleural effusion is appreciated, no acute cardiopulmonary abnormalities. The bilateral lower extremity venous Doppler ultrasound was negative for deep vein thrombosis and CT angio of the chest showed that there are peripheral pulmonary emboli in the lower lobes bilaterally. There is bilateral lower lobe atelectasis and right middle lobe infiltrate. ASSESSMENT AND PLAN: The patient was admitted to ICU with diagnosis of healthcare-associated pneumonia as well as bilateral pulmonary emboli. Her lactic acid was normal at 1.2. Plan is to obviously continue with IV antibiotic in the form of meropenem and vancomycin. Continue with Lovenox. Given that she has had recurrent falls at [facility], because of dementia she forgets to use her walker, she is going to be at high risk for anticoagulation and I will discuss this with Dr. Gómez tomorrow to see whether she is a candidate for IVC filter. JACQUELINE ALFONSO MD DR: SHNAA/caryn JOB#: [id number] / [id number]
[2019-09-01] MEDS: BUDESONIDE 0.5 MG/2 ML NEBU NEB SCH (20:09)
[2019-09-01] MEDS: MELATONIN 3 MG TABLET PO SCH (20:44)
[2019-09-01] MEDS: traZODone 50 MG TABLET. PO SCH (20:44)
[2019-09-01] MEDS: SERTRALINE 50 MG TABLET. PO SCH (20:44)
[2019-09-01] MEDS: DIVALPROEX 125 MG CAP.SPRINK PO SCH (20:44)
[2019-09-01] MEDS: MESALAMINE 400 MG CAP.DRTAB. PO SCH (20:44)
[2019-09-01] MEDS: MEROPENEM 1 GM in IV NORMAL SALINE 100ML 100 ML IV SCH (20:45)
[2019-09-01] MEDS ORDERED: NON FORMULARY ITEM (Budesonide/Formoterol Fumarate (Symbicort 160-4.5 Mcg Inhaler) 2 PUFF) IH SCH (21:00)
[2019-09-02] VITALS (17 sets, daily range): BP systolic 97–149; BP diastolic 48–73
[2019-09-02] MEDS: BUDESONIDE 0.5 MG/2 ML NEBU NEB SCH ×2 (05:39→21:12)
[2019-09-02] MEDS: ALBUTEROL SULFATE 2.5 MG/3 ML NEBU. NEB SCH ×4 (05:39→21:13)
[2019-09-02] MEDS: LEVOTHYROXINE 50 MCG TABLET PO SCH (05:46)
[2019-09-02] MEDS: MEROPENEM 1 GM in IV NORMAL SALINE 100ML 100 ML IV SCH ×2 (08:19→20:58)
[2019-09-02] MEDS: CETIRIZINE HCL 10 MG TABLET PO SCH (08:21)
[2019-09-02] MEDS: MESALAMINE 400 MG CAP.DRTAB. PO SCH ×2 (08:21→20:57)
[2019-09-02] MEDS: DIVALPROEX 125 MG CAP.SPRINK PO SCH ×2 (08:22→20:56)
[2019-09-02] MEDS: POTASSIUM CHLORIDE 20 MEQ TABLET.ER. PO SCH (08:22)
[2019-09-02] MEDS: FUROSEMIDE 40 MG TABLET PO SCH (08:22)
[2019-09-02] MEDS: ENOXAPARIN ** NOTE DOSE ** SYRINGE SQ SCH (08:23)
[2019-09-02] MEDS: VANCOMYCIN PER PHARMACY MC PRN (12:13)
[2019-09-02] MEDS: IV NORMAL SALINE 1,000ML 1,000 ML IV SCH (12:29)
[2019-09-02] MEDS ORDERED: VANCOMYCIN 1.5 GM in IV NORMAL SALINE 500ML 500 ML IV SCH (14:00)
--- NOTE | 2019-09-02 20:22 | PN ---
DATE: 09/02/2019 SUBJECTIVE: The patient is resting, slightly propped up in bed, in no apparent distress. She is awake, alert, but very confused. She denied any chest pain or shortness of breath. Denied any cough, phlegm or hemoptysis. I did speak with Dr. Gómez, who recommended treatment of the pulmonary emboli for at least a short period of time, but he agreed that the patient will need eventually an IVC filter that can be done as an outpatient. PHYSICAL EXAMINATION: GENERAL: When I examined her this afternoon, she looked well and was clearly in no apparent respiratory distress, pale, but no jaundice, cyanosis or thyromegaly. No jugular venous distention. No lower limb edema. VITAL SIGNS: Her heart rate was 73, blood pressure was 102/49, temperature was 97.9, respiratory rate was 17 and oxygen saturation was 95% on 2 liters of oxygen. HEAD, EYES, EARS, NOSE AND THROAT: Showed normocephalic, atraumatic. NECK: Supple. HEART: Showed normal first and second heart sounds. No gallop or murmur. CHEST: Clear to auscultation. No crepitation or rhonchi. ABDOMEN: Distended, soft, nontender. NEUROLOGIC: She is demented, but without any obvious lateralizing sign. Her intake was 3600, no output was recorded. LABORATORY DATA: As of yesterday showed a white cell count of 6400, hemoglobin 11, hematocrit 36, MCV 92 and platelet count of 240,000. Her chemistry showed a serum sodium 142, potassium 4.2, chloride 104, bicarbonate 36, anion gap of 2, BUN 17, creatinine 1.2, estimated GFR was 48 mL per minute. Her glucose was 84, calcium was 8.8. Total bilirubin, AST, ALT, alkaline phosphatase were normal. Total protein was 7, albumin was 2.9. ASSESSMENT: 1. Acute bilateral pulmonary emboli. 2. Healthcare-associated pneumonia. 3. Acute hypoxic respiratory failure. 4. Morbid obesity. 5. Crohn's disease. 6. Hypothyroidism. 7. Gastroesophageal reflux disease. PLAN: To switch her Lovenox to Eliquis and continue with IV antibiotic for now. The patient will eventually be discharged to [facility] and we will make an arrangement for her to have an inferior vena cava filter as an outpatient at [facility]. JACQUELINE ALFONSO MD DR: Robinson JOB#: [id number] / [id number]
[2019-09-02] MEDS: traZODone 50 MG TABLET. PO SCH (20:57)
[2019-09-02] MEDS: APIXABAN 5 MG TABLET. PO SCH (20:57)
[2019-09-02] MEDS: SERTRALINE 50 MG TABLET. PO SCH (20:57)
[2019-09-02] MEDS: MELATONIN 3 MG TABLET PO SCH (20:57)
[2019-09-03] VITALS (16 sets, daily range): BP systolic 102–153; BP diastolic 52–70
[2019-09-03] MEDS: ALBUTEROL SULFATE 2.5 MG/3 ML NEBU. NEB SCH ×4 (05:28→21:05)
[2019-09-03] MEDS: LEVOTHYROXINE 50 MCG TABLET PO SCH (05:36)
[2019-09-03 06:39] LABS: BASO % 1 % (0-3); EOS # 0.4 x10^3/uL (0.0-0.7); EOS % 7 % (0-3); HEMATOCRIT 33.2 % (36.0-47.0); HEMOGLOBIN 10.8 g/dL (12.0-15.5); LYMPH # 1.4 x10^3/uL (1.0-4.8); LYMPH % 25 % (24-48); MEAN CORPUSCULAR HEMOGLOBIN 29 pg (25-35); MEAN CORPUSCULAR HGB CONC 33 g/dL (31-37); MEAN CORPUSCULAR VOLUME 89 fL (79-100); MONO # 0.7 x10^3/uL (0.0-1.1); MONO % 13 % (0-9); NEUT # 2.9 x10^3uL (1.8-7.7); NEUT % 54 % (31-73); PLATELET COUNT 232 x10^3/uL (140-400); RED BLOOD COUNT 3.71 x10^6/uL (3.50-5.40); WHITE BLOOD COUNT 5.5 x10^3/uL (4.0-11.0)
[2019-09-03 06:57] LABS: ALBUMIN 2.4 g/dL (3.4-5.0); ALBUMIN/GLOBULIN RATIO 0.7 (1.0-1.7); CALCIUM 8.3 mg/dL (8.5-10.1); CREATININE 0.9 mg/dL (0.6-1.0); GFR 60.1; POTASSIUM 4.1 mmol/L (3.5-5.1); TOTAL BILIRUBIN 0.2 mg/dL (0.2-1.0); TOTAL PROTEIN 5.9 g/dL (6.4-8.2)
[2019-09-03] MEDS: LACTOBACILLUS RHAMNOSUS GG 1 CAPSULE. PO SCH ×2 (08:42→21:26)
[2019-09-03] MEDS: FUROSEMIDE 40 MG TABLET PO SCH (08:42)
[2019-09-03] MEDS: DIVALPROEX 125 MG CAP.SPRINK PO SCH ×2 (08:42→21:26)
[2019-09-03] MEDS: APIXABAN 5 MG TABLET. PO SCH ×2 (08:42→21:26)
[2019-09-03] MEDS: POTASSIUM CHLORIDE 20 MEQ TABLET.ER. PO SCH (08:42)
[2019-09-03] MEDS: CETIRIZINE HCL 10 MG TABLET PO SCH (08:42)
[2019-09-03] MEDS: MESALAMINE 400 MG CAP.DRTAB. PO SCH ×2 (09:23→21:26)
[2019-09-03] MEDS: MEROPENEM 1 GM in IV NORMAL SALINE 100ML 100 ML IV SCH ×2 (09:23→21:27)
[2019-09-03] MEDS: BUDESONIDE 0.5 MG/2 ML NEBU NEB SCH ×2 (10:22→21:05)
--- NOTE | 2019-09-03 11:48 | PN ---
DATE: 09/03/2019 SUBJECTIVE: The patient is resting, slightly propped up, sleeping comfortably, in no apparent distress. On questioning her, denied any complaint, in particular denied any chest pain, shortness of breath, cough, phlegm or hemoptysis. PHYSICAL EXAMINATION: GENERAL: When I examined her this morning, she looked well and was clearly in no apparent respiratory distress, slightly pale, but no jaundice, cyanosis, or thyromegaly. No jugular venous distension. No limb edema. VITAL SIGNS: Her heart rate was 77, blood pressure was 128/66, temperature was 98.3, respiratory rate was 16, and oxygen saturation was 95% on 2 liters of oxygen. HEAD, EYES, EARS, NOSE AND THROAT: Showed normocephalic, atraumatic. NECK: Supple. HEART: Showed normal first and second heart sounds with no gallop, rub or murmur. CHEST: Clear to auscultation. No crepitation or rhonchi. ABDOMEN: Distended, soft, nontender. NEUROLOGIC: She is awake, alert, but clearly demented; however, all her cranial nerves are intact. She has no lateralizing sign. Her intake over the last 24 hours was 3580, no output was recorded. LABORATORY DATA: Her lab work this morning showed a white cell count of 5500, hemoglobin 10.8, hematocrit 33, MCV 89 and platelet count of 232,000. Her chemistry showed a serum sodium of 142, potassium 4.1, chloride 104, bicarbonate 34, anion gap of 4, BUN 15, creatinine 0.9, estimated GFR was 60 mL per minute. Her glucose was 88, calcium was 8.3. Total bilirubin, AST, ALT, alkaline phosphatase were normal. Total protein was 5.9, albumin was 2.4. ASSESSMENT: 1. Acute bilateral pulmonary emboli. 2. Healthcare-associated pneumonia. 3. Acute hypoxic respiratory failure. 4. Chronic obstructive pulmonary disease. 5. Morbid obesity. 6. Crohn's disease. 7. Hypothyroidism. 8. Gastroesophageal reflux disease. PLAN: To continue with IV antibiotic. Her blood cultures so far are negative after 2 days, so I will discontinue the vancomycin and I will continue with meropenem for now. JACQUELINE ALFONSO MD DR: SHANA/caryn JOB#: [id number] / [id number]
[2019-09-03] MEDS: traZODone 50 MG TABLET. PO SCH (21:26)
[2019-09-03] MEDS: MELATONIN 3 MG TABLET PO SCH (21:26)
[2019-09-03] MEDS: SERTRALINE 50 MG TABLET. PO SCH (21:26)
[2019-09-04 05:36] VITALS: BP 149/74
[2019-09-04] MEDS: ALBUTEROL SULFATE 2.5 MG/3 ML NEBU. NEB SCH ×4 (05:40→20:57)
[2019-09-04] MEDS: LEVOTHYROXINE 50 MCG TABLET PO SCH (06:00)
[2019-09-04] MEDS: BUDESONIDE 0.5 MG/2 ML NEBU NEB SCH ×2 (08:00→20:57)
[2019-09-04] MEDS: POTASSIUM CHLORIDE 20 MEQ TABLET.ER. PO SCH (10:57)
[2019-09-04] MEDS: CETIRIZINE HCL 10 MG TABLET PO SCH (10:57)
[2019-09-04] MEDS: MESALAMINE 400 MG CAP.DRTAB. PO SCH ×2 (10:57→19:49)
[2019-09-04] MEDS: APIXABAN 5 MG TABLET. PO SCH ×2 (10:57→19:48)
[2019-09-04] MEDS: FUROSEMIDE 40 MG TABLET PO SCH (10:58)
[2019-09-04] MEDS: DIVALPROEX 125 MG CAP.SPRINK PO SCH ×2 (10:58→19:49)
[2019-09-04] MEDS: MEROPENEM 1 GM in IV NORMAL SALINE 100ML 100 ML IV SCH ×2 (10:58→19:50)
[2019-09-04] MEDS: LACTOBACILLUS RHAMNOSUS GG 1 CAPSULE. PO SCH ×2 (10:58→19:49)
[2019-09-04 11:16] VITALS: BP 114/62
--- NOTE | 2019-09-04 11:36 | PN ---
DATE: 09/04/2019 SUBJECTIVE: The patient is sitting comfortably, eating her lunch, in no apparent distress. On questioning her, she denied any chest pain or shortness of breath, cough, phlegm or hemoptysis, but did complain that she has generalized aches and pains. She is very weak according to the nursing staff and has shuffling gait, although she used to walk with a walker without any assistance. PHYSICAL EXAMINATION: GENERAL: When I examined her, she was pale, no jaundice, cyanosis or thyromegaly. No jugular venous distention. No limb edema. VITAL SIGNS: Her heart rate was 72, blood pressure was 149/74, temperature was 97.9, respiratory rate 16, and oxygen saturation was 96% on 2 liters of oxygen. HEAD, EYES, EARS, NOSE AND THROAT: Showed normocephalic, atraumatic. NECK: Supple. HEART: Showed normal first and second heart sounds. No gallop, rub or murmur. CHEST: Clear to auscultation. No crepitation or rhonchi. ABDOMEN: Distended, soft, nontender. NEUROLOGIC: She was demented, but without any obvious lateralizing sign. All her cranial nerves intact. She moves extremities without difficulty. She ambulates with a walker. Her intake was 2735, no output was recorded. LABORATORY DATA: As of yesterday showed a serum sodium of 142, potassium 4.1, chloride 104, bicarbonate 34, anion gap of 4, BUN 15, creatinine 0.9. Her white cell count was 5500, hemoglobin 11, hematocrit 33, MCV 89 and platelet count 232,000. ASSESSMENT: 1. Acute bilateral pulmonary emboli. 2. Healthcare-associated pneumonia. 3. Acute hypoxic respiratory failure. 4. Chronic obstructive pulmonary disease. 5. Morbid obesity. 6. Crohn's disease. 7. Hypothyroidism. 8. Gastroesophageal reflux disease. PLAN: To continue IV antibiotic. Her blood cultures are so far negative. Therefore, her vancomycin was discontinued. We will continue with meropenem and nebulized albuterol and Atrovent. Continue with the Eliquis. She will be discharged back to [facility]. I will arrange for an IVC filter as an outpatient at [facility]. JACQUELINE ALFONSO MD DR: SHANA/caryn JOB#: [id number] / [id number]
[2019-09-04] MEDS ORDERED: ONDANSETRON PF 4 MG/2 ML VIAL. IVP PRN (12:15)
[2019-09-04 19:44] VITALS: BP 119/67
[2019-09-04] MEDS: MELATONIN 3 MG TABLET PO SCH (19:48)
[2019-09-04] MEDS: SERTRALINE 50 MG TABLET. PO SCH (19:49)
[2019-09-04] MEDS: traZODone 50 MG TABLET. PO SCH (19:51)
[2019-09-05] MEDS: ALBUTEROL SULFATE 2.5 MG/3 ML NEBU. NEB SCH ×2 (05:27→09:08)
[2019-09-05] MEDS: LEVOTHYROXINE 50 MCG TABLET PO SCH (05:31)
[2019-09-05 06:21] LABS: HEMATOCRIT 33.5 % (36.0-47.0); HEMOGLOBIN 10.7 g/dL (12.0-15.5); RED BLOOD COUNT 3.67 x10^6/uL (3.50-5.40); RED CELL DISTRIBUTION WIDTH 17.2 % (11.5-14.5)
[2019-09-05 06:24] LABS: CALCIUM 8.5 mg/dL (8.5-10.1); GFR 53.2; POTASSIUM 4.1 mmol/L (3.5-5.1)
[2019-09-05 06:28] VITALS: BP 109/66
[2019-09-05] MEDS: MESALAMINE 400 MG CAP.DRTAB. PO SCH (08:18)
[2019-09-05] MEDS: CETIRIZINE HCL 10 MG TABLET PO SCH (08:18)
[2019-09-05] MEDS: POTASSIUM CHLORIDE 20 MEQ TABLET.ER. PO SCH (08:18)
[2019-09-05] MEDS: FUROSEMIDE 40 MG TABLET PO SCH (08:18)
[2019-09-05] MEDS: LACTOBACILLUS RHAMNOSUS GG 1 CAPSULE. PO SCH (08:19)
[2019-09-05] MEDS: DIVALPROEX 125 MG CAP.SPRINK PO SCH (08:19)
[2019-09-05] MEDS: APIXABAN 5 MG TABLET. PO SCH (08:19)
[2019-09-05] MEDS: MEROPENEM 1 GM in IV NORMAL SALINE 100ML 100 ML IV SCH (08:21)
[2019-09-05] MEDS: BUDESONIDE 0.5 MG/2 ML NEBU NEB SCH (09:08)
[2019-09-05 09:48] VITALS: BP 110/65
--- NOTE | 2019-09-05 14:05 | DS ---
DATE OF DISCHARGE: 09/05/2019 HOSPITAL COURSE: The patient is an 79-year-old female patient who was originally admitted to [facility] for inpatient psychiatric stabilization as she has been on account of being very angry, agitated, exit seeking, restless, not redirectable, has insomnia, banging on doors, anxious, threatened to call the police, verbally yelling out. All this in a background of major neurocognitive disorder and was admitted for inpatient psychiatric stabilization. While there, she was noted by the nursing staff to be lethargic, hypoxic and her oxygen saturation was ____ on room air and therefore we did actually given the fact that she has previous history of deep venous thrombosis and pulmonary embolism, we did repeat a CT angio of the chest, which showed that she has bilateral lower lobe pulmonary emboli as well as right middle lobe infiltrate and therefore she was transferred down to ICU, was started on IV antibiotic and oral Eliquis. As she is allergic, we started her on vancomycin as well as meropenem to be dosed by the pharmacist. Her blood culture remained negative after 4 days and we discontinued vancomycin and she remained hemodynamically stable. A decision was made to discharge her to [facility] to continue with oral antibiotic. Continue with apixaban. PHYSICAL EXAMINATION: GENERAL: When I saw her today, she was sitting in her chair comfortably in no apparent distress. No pallor, jaundice or cyanosis. No lymphadenopathy, no thyromegaly. No jugular venous distention. No limb edema. VITAL SIGNS: Her heart rate was 87, blood pressure was 110/65, temperature was 98.2, respiratory rate 20, and oxygen saturation was 92% on 2 liters of oxygen. HEAD, EYES, EARS, NOSE AND THROAT: Showed normocephalic, atraumatic. NECK: Supple. HEART: Showed normal first and second heart sounds with no gallop, rub or murmur. CHEST: Clear to auscultation. No crepitation or rhonchi. ABDOMEN: Distended, soft, nontender. No guarding or rigidity. No organomegaly. All hernial orifices intact. Bowel sounds normal. NEUROLOGIC: She was demented, but without any obvious lateralizing sign. All her cranial nerves are intact. She moves extremities without difficulty. She continued to be mostly bed bound, wheelchair bound. Her intake over the last 24 hours was 1514 and output was 600. LABORATORY DATA: As of this morning showed a white cell count of 6000, hemoglobin 10.7, hematocrit 33, MCV 91, and platelet count 239,000. Her chemistry showed a serum sodium 141, potassium 4.1, chloride 103, bicarbonate 38, anion gap of 0, BUN of 17, creatinine 1, estimated GFR was 53 mL per minute. Her glucose was 87, calcium was 8.5. DISCHARGE MEDICATIONS: She was discharged to continue on albuterol sulfate 2 puffs by nebulizer every 4 hours, Symbicort 2 puffs twice a day, cholecalciferol (vitamin D3) 50,000 units once a week, Depakote 250 mg twice a day, famotidine 20 mg once a day, furosemide 40 mg once a day, levothyroxine sodium 50 mcg once a day, loratadine 10 mg once a day, magnesium hydroxide for milk of magnesia 30 mL p.o. daily p.r.n. for constipation, melatonin 3 mg at bedtime, mesalamine for Asacol 1600 mg daily and Asacol 800 mg at bedtime, Nystatin powder applied topically twice a day, ondansetron 4 mg every 8 hours as needed, polyvinyl alcohol for artificial tears 1 drop to both eyes 4 times a day, potassium chloride 20 mEq once a day, sertraline for Zoloft 50 mg at bedtime and trazodone 50 mg at bedtime. FINAL DISCHARGE DIAGNOSES: 1. Healthcare-associated pneumonia. 2. Bilateral pulmonary emboli. 3. Acute hypoxic respiratory failure. 4. Chronic obstructive pulmonary disease. 5. Morbid obesity. 6. Crohn's disease. 7. Hypothyroidism. 8. Gastroesophageal reflux disease. PLAN: To continue with Eliquis and at one point in time beginning of September I will make arrangement for her to have an IVC filter placement after we stop the Eliquis for a few days. JACQUELINE ALFONSO MD DR: SHANA/caryn JOB#: [id number] / [id number]
[2019-09-08] MEDS ORDERED: CHOLECALCIFEROL (VITAMIN D3) 50,000 UNIT CAPSULE PO SCH (09:00)
[2019-09-09] MEDS ORDERED: MAG HYDROX/AL HYDROX/SIMETH 30 ML ORAL.SUSP PO PRN (18:00)
== END 2019-09-05 13:45 | DRG 175 ==
LOC: ICU 08:01 → 1 SOUTH 09-03 16:56
PROVIDERS: ADMIT Internal Medicine; ATTEND Internal Medicine
DX: I26.99 Other pulmonary embolism without acute cor pulmonale (principal); J18.9 Pneumonia, unspecified organism; J96.01 Acute respiratory failure with hypoxia; J44.0 Chronic obstructive pulmonary disease with (acute) lower respiratory infection; J98.11 Atelectasis; K50.90 Crohn's disease, unspecified, without complications; E03.9 Hypothyroidism, unspecified; E66.01 Morbid (severe) obesity due to excess calories; F01.50 Vascular dementia, unspecified severity, without behavioral disturbance, psychotic disturbance, mood disturbance, and anxiety; G47.00 Insomnia, unspecified; Z68.37 Body mass index [BMI] 37.0-37.9, adult; I25.10 Atherosclerotic heart disease of native coronary artery without angina pectoris; K21.9 Gastro-esophageal reflux disease without esophagitis; Y95 Nosocomial condition; Z86.711 Personal history of pulmonary embolism; Z86.718 Personal history of other venous thrombosis and embolism; Z88.0 Allergy status to penicillin; Z88.8 Allergy status to other drugs, medicaments and biological substances
CPT/HCPCS: 36415; 71275; 80048; 80053; 85025; 85027; 87040; 93970; 94640; 94760; J1650; J2185; J3370; J7040; J7613; J7626; Q9967; 97110; J7030

== ENCOUNTER 2019-10-20 18:19 | Inpatient (IN) | payer MEDICARE, OTHER ==
[~2019-10-20] VITALS: Ht 167.6 cm; Wt 91.7 kg
[2019-10-20] MEDS ORDERED: IV NORMAL SALINE 1,000ML 1,000 ML IV ONE (18:45)
--- NOTE | 2019-10-20 19:11 | PHYS DOC ---
Past History Past Medical History: Anxiety, COPD, Dementia, GERD, Hypothyroid, Other Additional Past Medical Histor: CROHNS Past Surgical History: No Surgical History Alcohol Use: None Drug Use: None Adult General Chief Complaint Chief Complaint: ALTERED MENTAL STATUS HPI HPI Patient is a 79 year old female who presents with complaint of confusion. Patient was brought to the emergency department from [facility] after having noted change in mental status within the last 2 days. They note that the patient has been increasingly weaker and having difficulty with balance. Normally is able to use a walker independently for ambulation but has been requiring increased assistance. They also note patient has had delayed oral speech. Denies any any unilateral weakness, facial droop. They do note increased difficulty swallowing. There is been present for greater than 12 hours. Patient has history of Alzheimer's dementia. She does note that she feels confused but is able to answer questions appropriately. Denies any pain currently. Review of Systems Review of Systems Constitutional: Denies fever or chills [] Eyes: Denies change in visual acuity, redness, or eye pain [] HENT: Trouble swallowing, denies nasal congestion or sore throat [] Respiratory: Denies cough or shortness of breath [] Cardiovascular: Denies chest pain or edema[] GI: Denies abdominal pain, nausea, vomiting, bloody stools or diarrhea [] : Denies dysuria or hematuria [] Musculoskeletal: Denies back pain or joint pain [] Integument: Denies rash or skin lesions [] Neurologic: Confusion, generalized weakness, denies headache, focal weakness or sensory changes [] All other systems were reviewed and found to be within normal limits, except as documented in this note. Current Medications Current Medications Current Medications Medications (Trade) Dose Ordered Sig/Pierre Start Time Stop Time Status Last Admin Dose Admin Sodium Chloride 1,000 ml @ 1,000 mls/hr 1X ONCE 10/20/19 18:45 10/20/19 19:44 Allergies Allergies Allergies Coded Allergies Type Severity Reaction Last Updated Verified acetaminophen Allergy Intermediate 08/23/19 Yes codeine Allergy Intermediate 08/23/19 Yes Penicillins Allergy Unknown 08/22/19 Yes cephalexin Allergy Unknown 08/22/19 Yes methylprednisolone Allergy Unknown 08/22/19 Yes prednisone Allergy Unknown 08/22/19 Yes Physical Exam Physical Exam Constitutional: Alert, afebrile, no acute distress. [] HENT: Normocephalic, atraumatic, bilateral external ears normal, dry mucous membranes, whitish material dried to tongue appears to be consistent with possible attempted swallowing of tablet, nose normal. [] Eyes: PERRLA, EOMI, conjunctiva normal, no discharge. [] Neck: Normal range of motion, no tenderness, supple, no stridor. [] Cardiovascular:Heart rate regular rhythm, no murmur [] Lungs & Thorax: Bilateral breath sounds clear to auscultation [] Abdomen: Bowel sounds normal, soft, no tenderness, no masses, no pulsatile masses. [] Skin: Warm, dry, no erythema, no rash. [] Back: No tenderness, no CVA tenderness. [] Extremities: No tenderness, no cyanosis, no clubbing, ROM intact, no edema. [] Neurologic: Alert and oriented to self only, cranial nerves II through XII grossly intact, bilateral upper and lower motor strength 4 out of 5, normal sensory function, no focal deficits noted. [] Current Patient Data Vital Signs Vital Signs Date Time Temp Pulse Resp B/P (MAP) Pulse Ox O2 Delivery O2 Flow Rate FiO2 10/20/19 18:37 98.2 94 18 124/58 (80) 96 Room Air Lab Results Laboratory Tests Test 10/20/19 19:04 10/20/19 19:05 10/20/19 19:35 Troponin I Quantitative < 0.017 ng/mL White Blood Count 6.0 x10^3/uL Red Blood Count 4.52 x10^6/uL Hemoglobin 13.0 g/dL Hematocrit 41.9 % Mean Corpuscular Volume 93 fL Mean Corpuscular Hemoglobin 29 pg Mean Corpuscular Hemoglobin Concent 31 g/dL Red Cell Distribution Width 18.3 % Platelet Count 248 x10^3/uL Neutrophils (%) (Auto) 51 % Lymphocytes (%) (Auto) 26 % Monocytes (%) (Auto) 19 % Eosinophils (%) (Auto) 4 % Basophils (%) (Auto) 0 % Neutrophils # (Auto) 3.1 x10^3uL Lymphocytes # (Auto) 1.5 x10^3/uL Monocytes # (Auto) 1.1 x10^3/uL Eosinophils # (Auto) 0.2 x10^3/uL Basophils # (Auto) 0.0 x10^3/uL Sodium Level 143 mmol/L Potassium Level 4.9 mmol/L Chloride Level 105 mmol/L Carbon Dioxide Level 32 mmol/L Anion Gap 6 Blood Urea Nitrogen 21 mg/dL Creatinine 1.4 mg/dL Estimated GFR (Cockcroft-Gault) 36.1 BUN/Creatinine Ratio 15 Glucose Level 90 mg/dL Calcium Level 9.3 mg/dL Magnesium Level 2.0 mg/dL Total Bilirubin 0.2 mg/dL Aspartate Amino Transf (AST/SGOT) 25 U/L Alanine Aminotransferase (ALT/SGPT) 16 U/L Alkaline Phosphatase 77 U/L WR-Ike-M-Type Natriuretic Peptide 379 pg/mL Total Protein 6.5 g/dL Albumin 3.0 g/dL Albumin/Globulin Ratio 0.9 Valproic Acid (Depakene) Level mcg/mL Valproic Acid Last Dose Date 10/20/19 Valproic Acid Last Dose Time 0700 Urine Collection Type U cath Urine Color Yellow Urine Clarity Clear Urine pH 5.0 Urine Specific Falkner 1.025 Urine Protein Trace Urine Glucose (UA) Neg mg/dL Urine Ketones (Stick) 40 mg/dL Urine Blood Neg Urine Nitrite Neg Urine Bilirubin Neg Urine Urobilinogen Dipstick 0.2 mg/dL Urine Leukocyte Esterase Neg Urine RBC 0 /HPF Urine WBC 1-4 /HPF Urine Squamous Epithelial Cells Occ /LPF Urine Bacteria 0 /HPF Urine Hyaline Casts Few /HPF Urine Mucus Mod /LPF Current Medications Medications (Trade) Dose Ordered Sig/Pierre Route PRN Reason Start Time Stop Time Status Last Admin Dose Admin Sodium Chloride 1,000 ml @ 1,000 mls/hr 1X ONCE IV 10/20/19 18:45 10/20/19 19:44 DC 10/20/19 18:45 EKG EKG Interpreted by me: Heart rate 85, sinus rhythm, normal intervals, normal axis, no acute ST/T-wave abnormalities present[] Radiology/Procedures Radiology/Procedures [address] [address] IMAGING REPORT Signed PATIENT: ANAHI BLANCA ACCOUNT: [id number] : 1940 LOCATION: ER AGE: 79 SEX: F EXAM STATUS: PRE ER ORD. PHYSICIAN: CHANEL CHUA MD REASON: altered mental status PROCEDURE: CT HEAD WO CONTRAST EXAM: CT Head without IV contrast CLINICAL HISTORY: altered mental status COMPARISON: None. TECHNIQUE: Routine CT of the head without contrast. Soft tissues and bone windows were reviewed. PQRS compliance statement - One or more of the following individualized dose reduction techniques were utilized for this study: 1. Automated exposure control 2. Adjustment of the mA and/or kV according to patient size 3. Use of iterative reconstruction technique FINDINGS: There is no evidence of hemorrhage, mass or extra-axial fluid collection. Meneses-white differentiation is maintained with no evidence of edema. Diffuse periventricular, subcortical and deep white matter hypoattenuation likely changes of chronic small vessel disease. There is no mass effect or shift of the intracranial structures. The ventricles are mildly prominent relative to the degree of cortical volume loss. Although this may be related to central atrophy, communicating hydrocephalus may cause an identical imaging appearance. The cerebellum and brainstem are unremarkable. The calvarium demonstrates no evidence of fracture or focal lesion. Dural based 8 mm density in the left posterior parietal region may represent calcified meningioma. There is normal aeration of the visualized paranasal sinuses and mastoid air cells. The visualized portions of the orbits are normal. IMPRESSION: 1. The ventricles are mildly prominent relative to the degree of cortical volume loss. Although this may be related to central atrophy, communicating hydrocephalus may cause an identical imaging appearance. 2. Otherwise no evidence for acute intracranial process. 3. White matter changes likely chronic small vessel disease. Electronically signed by: Alfred Zendejas MD (10/20/2019 7:13 PM) [id number] DICTATED AND SIGNED BY: ALFRED ZENDEJAS MD DATE: 10/20/19 191 CC: CHANEL CHUA MD; RUSS RUFF MD ~ One view AP chest x-ray interpreted by me: No infiltrate, no effusions, normal cardiac silhouette[] Course & Med Decision Making Course & Med Decision Making Pertinent Labs and Imaging studies reviewed. (See chart for details) Patient started on IV fluids in the emergency department. Patient's lab work does show elevated BUN/creatinine levels. Urinalysis shows no signs of infection but does register positive for ketones. Patient appears to have dehydration which I believe is affecting her current symptoms and likely worsening her underlying dementia symptoms. The patient will be admitted for continued IV hydration. I spoke with Dr. Ruff who will except care patient in hospital.[] Dragon Disclaimer Dragon Disclaimer This electronic medical record was generated, in whole or in part, using a voice recognition dictation system. Departure Departure: Impression: Primary Impression: Acute metabolic encephalopathy Additional Impression: Dehydration Disposition: ADMITTED INPATIENT Admitting Physician: Russ Ruff Condition: STABLE Referrals: RUSS RUFF MD (PCP) Problem Qualifiers CHANEL CHUA MD Oct 20, 2019 19:11
--- NOTE | 2019-10-20 19:15 | RAD ---
EXAM: CT Head without IV contrast CLINICAL HISTORY: altered mental status COMPARISON: None. TECHNIQUE: Routine CT of the head without contrast. Soft tissues and bone windows were reviewed. PQRS compliance statement - One or more of the following individualized dose reduction techniques were utilized for this study: 1. Automated exposure control 2. Adjustment of the mA and/or kV according to patient size 3. Use of iterative reconstruction technique FINDINGS: There is no evidence of hemorrhage, mass or extra-axial fluid collection. Meneses-white differentiation is maintained with no evidence of edema. Diffuse periventricular, subcortical and deep white matter hypoattenuation likely changes of chronic small vessel disease. There is no mass effect or shift of the intracranial structures. The ventricles are mildly prominent relative to the degree of cortical volume loss. Although this may be related to central atrophy, communicating hydrocephalus may cause an identical imaging appearance. The cerebellum and brainstem are unremarkable. The calvarium demonstrates no evidence of fracture or focal lesion. Dural based 8 mm density in the left posterior parietal region may represent calcified meningioma. There is normal aeration of the visualized paranasal sinuses and mastoid air cells. The visualized portions of the orbits are normal. IMPRESSION: 1. The ventricles are mildly prominent relative to the degree of cortical volume loss. Although this may be related to central atrophy, communicating hydrocephalus may cause an identical imaging appearance. 2. Otherwise no evidence for acute intracranial process. 3. White matter changes likely chronic small vessel disease. Electronically signed by: Alfred Kendall MD (10/20/2019 7:13 PM) [id number]
[2019-10-20 19:25] LABS: BASO % 0 % (0-3); EOS # 0.2 x10^3/uL (0.0-0.7); EOS % 4 % (0-3); HEMATOCRIT 41.9 % (36.0-47.0); LYMPH # 1.5 x10^3/uL (1.0-4.8); LYMPH % 26 % (24-48); MEAN CORPUSCULAR HEMOGLOBIN 29 pg (25-35); MEAN CORPUSCULAR HGB CONC 31 g/dL (31-37); MEAN CORPUSCULAR VOLUME 93 fL (79-100); MONO # 1.1 x10^3/uL (0.0-1.1); MONO % 19 % (0-9); NEUT # 3.1 x10^3uL (1.8-7.7); NEUT % 51 % (31-73); PLATELET COUNT 248 x10^3/uL (140-400); RED BLOOD COUNT 4.52 x10^6/uL (3.50-5.40); RED CELL DISTRIBUTION WIDTH 18.3 % (11.5-14.5)
[2019-10-20 19:28] LABS: ANION GAP 6 (6-14); BLOOD UREA NITROGEN 21 mg/dL (7-20); BUN/CREATININE RATIO 15 (6-20); CALCIUM 9.3 mg/dL (8.5-10.1); CARBON DIOXIDE 32 mmol/L (21-32); CHLORIDE 105 mmol/L (98-107); CREATININE 1.4 mg/dL (0.6-1.0); GFR 36.1; GLUCOSE 90 mg/dL (70-99); POTASSIUM 4.9 mmol/L (3.5-5.1); SODIUM 143 mmol/L (136-145)
[2019-10-20 19:40] LABS: ALBUMIN/GLOBULIN RATIO 0.9 (1.0-1.7); ALK PHOS 77 U/L (46-116); ALT (SGPT) 16 U/L (14-59); AST (SGOT) 25 U/L (15-37); TOTAL BILIRUBIN 0.2 mg/dL (0.2-1.0); TOTAL PROTEIN 6.5 g/dL (6.4-8.2)
[2019-10-20 20:09] LABS: BILIRUBIN,URINE NEG (NEG); CLARITY,URINE CLEAR; COLOR,URINE YELLOW; GLUCOSE,URINE NEG (NEG); NITRITE,URINE NEG (NEG); UROBILINOGEN,URINE 0.2 mg/dL (0.2 mg/dL)
[2019-10-20 20:10] LABS: BACTERIA,URINE 0 /HPF (0-FEW); HYALINE CASTS, URINE FEW /HPF; RBC,URINE 0 /HPF (0-2); SQUAMOUS EPITHELIAL CELL,UR OCC /LPF
--- NOTE | 2019-10-20 20:32 | RAD ---
AP portable chest radiograph 10/20/2019 Clinical History: History of hypoxia and weakness. An AP erect portable digital radiograph of the chest was obtained. Comparison study is dated 08/31/2019. The cardiac silhouette is borderline enlarged. The thoracic aorta is mildly tortuous. No acute pulmonary infiltrate is seen. No pleural effusion or pneumothorax is noted. The osseous structures are unchanged. Impression: No acute abnormality is seen. Electronically signed by: Nimesh Dumont MD (10/20/2019 8:29 PM) [id number]
[2019-10-20] MEDS: IV NORMAL SALINE 1,000ML 1,000 ML IV SCH (21:10)
[2019-10-20] MEDS ORDERED: ONDANSETRON PF 4 MG/2 ML VIAL. IV PRN (21:15)
[2019-10-20] MEDS ORDERED: POLY15DR27 EACHEYE (21:24)
[2019-10-20] MEDS ORDERED: APIX5TAB3 PO (21:24)
[2019-10-20] MEDS ORDERED: ACET325T21 PO (21:24)
--- NOTE | 2019-10-20 21:47 | EKG ---
[address] [address] Test Date: 2019-10-20 Test Time: 19:10:24 Pat Name: ANAHI BLANCA Department: Room: Gender: F Business Intelligence Engineer: : 1940 Requested By: CHANEL CHUA Order Number: [id number] Reading MD: Measurements Intervals [place] Rate: 85 P: 56 MS: 180 QRS: 23 QRSD: 70 T: 50 QT: 338 QTc: 402 Interpretive Statements SINUS RHYTHM NORMAL ECG RI6.01 No previous ECG available for comparison
[2019-10-20] MEDS ORDERED: MAGNESIUM HYDROXIDE 2,400 MG/30 ML ORAL.SUSP. PO PRN (22:15)
[2019-10-20] MEDS ORDERED: FAMOTIDINE 20 MG TABLET PO PRN (22:15)
[2019-10-20] MEDS ORDERED: NON FORMULARY ITEM (Albuterol Sulfate (Albuterol Sulfate Conc Neb Soln) 2.5 MG) NEB PRN (22:15)
[2019-10-20] MEDS ORDERED: POLYVINYL ALCOHOL 1.4% OPHTH SOLUTION 15ML BOTTLE. OU PRN (22:15)
[2019-10-20] MEDS ORDERED: ACETAMINOPHEN 325 MG TABLET PO PRN (22:15)
[2019-10-20] MEDS ORDERED: ALBUTEROL SULFATE 2.5 MG/3 ML NEBU. NEB PRN (22:45)
[2019-10-20] MEDS: POLYVINYL ALCOHOL 1.4% OPHTH SOLUTION 15ML BOTTLE. OU SCH (22:52)
[2019-10-20 23:00] VITALS: BP 110/53
[2019-10-20] MEDS: APIXABAN 5 MG TABLET. PO SCH (23:22)
[2019-10-20] MEDS: SERTRALINE 50 MG TABLET. PO SCH (23:22)
[2019-10-20] MEDS: traZODone 50 MG TABLET. PO SCH (23:22)
[2019-10-20] MEDS: MELATONIN 3 MG TABLET PO SCH (23:23)
[2019-10-20] MEDS: DIVALPROEX 125 MG CAP.SPRINK PO SCH (23:23)
[2019-10-20] MEDS: MESALAMINE 400 MG CAP.DRTAB. PO SCH (23:23)
[2019-10-21 03:07] VITALS: BP 92/53
[2019-10-21] MEDS ORDERED: ALBUTEROL SULFATE 2.5 MG/3 ML NEBU. NEB PRN (05:00)
[2019-10-21] MEDS ORDERED: BUDESONIDE 0.5 MG/2 ML NEBU NEB PRN (05:00)
--- NOTE | 2019-10-21 05:09 | NUR ---
Pt brought to icu bed 4 via gurney by ems. Pt head to toe, vitals completed. Pt belongings documented. Dr Ruff notified of admit and order given from to continue home meds.
--- NOTE | 2019-10-21 05:19 | NUR ---
Pt is an 79yr old female admitted for metabolic encephalopathy/dehydration. Pt is a current resident of [facility]. Home meds started. Evening meds administered to pt whole, pt needed encouragement to swallow pills. Pt is oriented to self and was able to state she was in [facility]. Pt is able to follow commands but gets confused at times.
[2019-10-21] MEDS: LEVOTHYROXINE 50 MCG TABLET PO SCH (06:01)
[2019-10-21] MEDS: IV NORMAL SALINE 1,000ML 1,000 ML IV SCH ×2 (06:02→14:05)
[2019-10-21 06:15] LABS: BASO % 1 % (0-3); EOS # 0.3 x10^3/uL (0.0-0.7); EOS % 7 % (0-3); HEMATOCRIT 36.1 % (36.0-47.0); HEMOGLOBIN 11.3 g/dL (12.0-15.5); LYMPH # 1.3 x10^3/uL (1.0-4.8); LYMPH % 26 % (24-48); MEAN CORPUSCULAR HEMOGLOBIN 29 pg (25-35); MEAN CORPUSCULAR HGB CONC 31 g/dL (31-37); MEAN CORPUSCULAR VOLUME 94 fL (79-100); MONO # 0.9 x10^3/uL (0.0-1.1); MONO % 17 % (0-9); NEUT # 2.5 x10^3uL (1.8-7.7); NEUT % 49 % (31-73); PLATELET COUNT 215 x10^3/uL (140-400); RED BLOOD COUNT 3.85 x10^6/uL (3.50-5.40); RED CELL DISTRIBUTION WIDTH 18.7 % (11.5-14.5); WHITE BLOOD COUNT 5.1 x10^3/uL (4.0-11.0)
[2019-10-21 06:21] LABS: CALCIUM 8.4 mg/dL (8.5-10.1); CREATININE 1.3 mg/dL (0.6-1.0); GFR 39.3; POTASSIUM 4.1 mmol/L (3.5-5.1)
[2019-10-21 06:45] VITALS: BP 117/64
--- NOTE | 2019-10-21 07:24 | NUR ---
Shift Report: Recieved report from cascade operator RNFernanda. PT sleeping quietly at this time. VSS. No evidence of pain or distress. PT stable at time of SBAR. Addendum: 10/21/19 at 0857 by LOUIS MOISE RN RN PT declined morning dose of levothyroxine with cascade operator RN. Medication wasted. Will attempt at 0900 med pass.
[2019-10-21] MEDS ORDERED: ALBUTEROL SULFATE 2.5 MG/3 ML NEBU. NEB SCH (08:00)
[2019-10-21] MEDS ORDERED: BUDESONIDE 0.5 MG/2 ML NEBU NEB SCH (08:00)
--- NOTE | 2019-10-21 08:30 | NUR ---
PT/OT at bedside working with patient. RN changed brief and conducted pericare. PT/OT assisted patient to bedside chair with gait belt and walker. PT unable to take two full steps to turn and sit in chair, but able to bear weight for a few minutes with walker support. She stated she needed to sit down and was guided into chair by Physical therapy. PT is very confused, alert only to self. Requests to be called by her proper name, not pet names or endearments. Unable to tell RN what her birthday is, where she is, or what date/time it is. Acknowledges directions, but exhibits difficulty following and executing them. RN encouraged patient to drink, but patient exhibited difficulty in sucking water through straw. PT took small sip of water, and did not cough or choke but may require swallow evaluation. Definitely x2 assist with gait belt and walker support. PT exhibits some left side neglect. PT is sitting in chair at bedside, reaching for items but exhibiting no inclination to attempt getting up. RN to apply chair alarm as precaution; maintaining line of site with patient. Will continue to monitor.
[2019-10-21] MEDS ORDERED: NON FORMULARY ITEM (Budesonide/Formoterol Fumarate (Symbicort 160-4.5 Mcg Inhaler) 2 PUFF) IH SCH (09:00)
[2019-10-21] MEDS: DIVALPROEX 125 MG CAP.SPRINK PO SCH ×2 (09:00→20:57)
[2019-10-21] MEDS ORDERED: NON FORMULARY ITEM (Albuterol Sulfate (Albuterol Sulfate Conc Neb Soln) 2.5 MG) NEB SCH (09:00)
[2019-10-21] MEDS ORDERED: FUROSEMIDE 40 MG TABLET PO SCH (09:00)
[2019-10-21] MEDS: POLYVINYL ALCOHOL 1.4% OPHTH SOLUTION 15ML BOTTLE. OU SCH ×2 (09:00→21:00)
[2019-10-21] MEDS: APIXABAN 5 MG TABLET. PO SCH ×2 (09:00→20:57)
--- NOTE | 2019-10-21 09:00 | NUR ---
PT declined eye drops and would not let RN apply.
--- NOTE | 2019-10-21 09:11 | NUR ---
Encouraged patient to drink broth, tea, water, juice or jello. PT refused.
--- NOTE | 2019-10-21 09:44 | NUR ---
shift supervisor melting RN reported patient took most of her PO meds last night, but exhibited significant pocketing of medication and either an inability to understand how to swallow, or an inability to swallow. RN continued to encourage patient to sip fluids. PT took small sip of broth, but RN unable to assess whether it was of any significant amount (i.e. </= to 30mL). PT is able to clear thick, yellow secretions with multiple cough attempts. Coughing is intermittent. RN asked PT to give a big, strong cough. Patient at first did not appear to understand, but after further encouragement coughed slightly without secretions. Cherie bedside swallow study conducted by RN and patient meets several criteria for consideration. PT meets parameters for bedside swallow study at this time. At this time, RN uncertain if patient can tolerate swallowing multiple pills and is holding PO meds, and NPO order in place ending swallow study findings. Will follow up with speech and provider.
[2019-10-21 10:01] VITALS: BP 106/56
--- NOTE | 2019-10-21 10:43 | NUR ---
PT sitting quietly and calmly watching television. Denies any needs or discomfort at this time. Skelp Processor visited briefly with patient, who was pleasant with him but confused.
--- NOTE | 2019-10-21 11:30 | NUR ---
PT's son (Kenney) stopped by for a short visit with the patient. Son confirmed that patient's mental status has been decreasing significantly over the last few months. Son stated she has been able to eat, drink and swallow but that he too has worried about her intake and nutrition status. PT's son provided his cell phone number which RN wrote up on white board: [phone]. Patient appears to be less confused, and was able to easily identify her son. She smiled and said "here we go again" when RN asked alertness/orientation questions. PT unable to tell the RN where she is, or provide the date/time. When asked, patient stated she is "at the [facility] [place] [facility] can be seen from patient's room window. RN reoriented to [facility]. PT and son had a brief, pleasant conversation. PT's son had to leave as it is his lunch break, but stated his father and the patient's would arrive shortly for a visit. PT stable and calm at this time. No evidence of distress. Denies further need or comfort request.
--- NOTE | 2019-10-21 12:51 | NUR ---
Pt's spouse came by for a short 20 minute visit with the patient. PT recognized him and they chatted pleasantly. PT's spouse states she is vegetarian, and asked that hospital staff please respect PT's dietary observations.
--- NOTE | 2019-10-21 13:04 | NUR ---
PT was dozing in chair. RN asked if she would like to get in bed to take a nap, and patient said, "I think that is a good idea". PT assisted in to bed by RN and FLIGHT NURSE. She was better able to stand up than this morning, but still required x2 assist with walker and gait belt. PT was in good spirits after talking with her . RN asked what her 's name was, and the patient replied: "His name is Bib. I love my !" saying they have been 60 years. PT positioned comfortably in bed. Warm blanket provided. PT denies further desires or comfort needs at this time. Will continue to monitor.
--- NOTE | 2019-10-21 14:20 | NUR ---
PT's grandson at bedside visiting. Patient was able to recognize patient and have a short, pleasant conversation with him.
--- NOTE | 2019-10-21 14:48 | NUR ---
Speech therapy called and discussed plan of care with RN. Based off patient's chart and presentation of symptoms, impaired swallowing capability may be largely impacted by neurocognitive deficits. Pt has no history of CVA/TIA. PT was on a regular diet at [place]. Speech therapist recommended RN attempt to entice patient to drink fluid and/or eat jello/pureed foods to determine patient's ability to swallow prior to undergoing wallow study, which may be delayed until Thursday10/24/19 due to patient volume and impending weekend. RN to reassess PT.
[2019-10-21] MEDS: MESALAMINE 400 MG CAP.DRTAB. PO SCH ×2 (15:03→20:58)
[2019-10-21] MEDS: CETIRIZINE HCL 10 MG TABLET PO SCH (15:03)
[2019-10-21] MEDS: POTASSIUM CHLORIDE 20 MEQ TABLET.ER. PO SCH (15:03)
[2019-10-21 15:21] VITALS: BP 101/42
--- NOTE | 2019-10-21 15:23 | NUR ---
RN crushed patient once PO daily meds and mixed in pudding. PT was able to eat pudding with some assistance, and could be encouraged to drink water out of a cup, needing frequent reminders of what to do. PT was calm and cooperative. PT had to swallow several times with fluids to ingest food but exhibited no s/s of choking or pocketing of food. VSS. AO1 - self. PT repositioned on right side, and requested to nap some more. Will continue to monitor.
--- NOTE | 2019-10-21 17:14 | NUR ---
PT experienced large BM that was soft, brown. PT required full bath and linen/gown change. PT was able to follow directions and tolerated the intervention well, though she was very jumpy and sensitive to sudden movements/cool temperatures from wipes. PT was distressed after all the activity, saying she just "needs to rest". RN set up dinner tray for patient, who stated she would eat in a minute. PT resting quietly in bed at this time. VSS. Denies pain, and is calming down. Will continue to monitor.
--- NOTE | 2019-10-21 17:50 | NUR ---
PT ate approximately 25% of her dinner stating "it was very good". PT requested chocolate ice cream for dessert, and thanked RN for being so nice to her. Hospitalist presently at bedside assessing patient. PT recognized him, and was very pleased to see him stating he "always takes care of me". PT was not able to provide articulate or appropriate answers to provider's questions. RN provided PT chocolate ice cream. She is resting quietly at this time, watching television. No evidence of pain or distress. VSS and baseline. RN updated family on PT status via telephone.
--- NOTE | 2019-10-21 18:15 | NUR ---
Speech Therapist followed up with RN to assess patient progress; they will follow up with RN tomorrow to determine further need for speech study. Dr. Ruff to consult with neurology as well. PT's son called and asked for update on his mother. Son expressed concern that this will happen again if she's returned to [place].
--- NOTE | 2019-10-21 18:55 | HP ---
ADMIT DATE: 10/20/2019 HISTORY OF PRESENT ILLNESS: The patient is an 79-year-old female patient, a resident at [facility], [place], operated by [facility], who was brought to the Emergency Room last night with complaints of apparently being very confused, which has been going on for the last 2 days, has noted by the nursing staff at [facility], [place], [place] by [facility]. The patient has been increasingly weaker and having difficulty with balance. Normally, she is able to use a walker independently for ambulation and has been requiring increased assistance. They also noted that she has difficulty talking. Denied any unilateral weakness or facial droop. They noted increased difficulty swallowing. This has been present for greater than 12 hours. The patient has history of Alzheimer dementia. She does note that she feels confused, but is able to answer question appropriately. Denies any pain on arrival. She was actually extensively investigated in the Emergency Room. Her lab work was essentially unremarkable except that her BUN and creatinine are elevated. Urinalysis was unremarkable and toxic screen was essentially negative. Her CT scan of the head showed the ventricles are mildly prominent with a degree of cortical volume loss, although this may be related to central atrophy communication hydrocephalus mucosa an identical imaging appearance, otherwise no evidence of acute intracranial process, white matter changes, likely due to chronic small vessel disease. Her chest x-ray was also unremarkable and the patient was admitted with acute confusional states as well as dehydration and was admitted and started on IV fluid together with all his other medications. PAST MEDICAL HISTORY: Significant for chronic obstructive pulmonary disease, hypothyroidism, gastroesophageal reflux disease, Crohn's disease, insomnia as well as history of pulmonary embolism. PAST SURGICAL HISTORY: Significant for appendectomy. ALLERGIES: SHE IS ALLERGIC TO PENICILLIN, ACETAMINOPHEN, CEPHALEXIN, CODEINE, METHYLPREDNISOLONE, PREDNISOLONE AND PREDNISONE. FAMILY HISTORY: Noncontributory. SOCIAL HISTORY: She is and currently resides at [facility], [place], operated by [facility]. She does not smoke, drink alcohol or use any recreational drugs. REVIEW OF SYSTEMS: Unobtainable as the patient is very confused. MEDICATIONS: She is currently on following medications: She is on loratadine 10 mg once a day, albuterol sulfate 2.5 mg by nebulizer 4 times a day, apixaban 5 mg twice a day, acetaminophen 650 mg every 6 hours, divalproex sodium 250 mg p.o. b.i.d., sertraline 50 mg at bedtime, trazodone 50 mg at bedtime, potassium chloride 20 mEq daily, furosemide 40 mg daily, Symbicort 2 puffs twice a day, polyvinyl alcohol for artificial tears 1 drop 4 times a day. She is on magnesium hydroxide for milk of magnesia 30 mL p.o. daily p.r.n. for constipation, famotidine 20 mg daily, mesalamine 1600 mg p.o. daily, mesalamine 800 mg at bedtime. She is on levothyroxine sodium 50 mcg once a day, vitamin D for cholecalciferol 50,000 international unit once a week, and melatonin 3 mg at bedtime. PHYSICAL EXAMINATION: GENERAL: On arrival to the Emergency Room, the patient looked well and was clearly in no apparent respiratory distress. No pallor, jaundice, cyanosis or thyromegaly. No jugular venous distention. No limb edema. VITAL SIGNS: Her heart rate was 71, blood pressure was 110/53, temperature was 98.2, respiratory rate was 20, and oxygen saturation was 91% on 2 liters of oxygen. HEAD, EYES, EARS, NOSE AND THROAT: Showed normocephalic, atraumatic. NECK: Supple. HEART: Showed normal first and second heart sounds. No gallop, rub or murmur. CHEST: Clear to auscultation. No crepitation or rhonchi. ABDOMEN: Distended, soft, nontender. NEUROLOGIC: She is confused, but without any obvious lateralizing sign. All other cranial nerves are intact. EXTREMITIES: She moves extremities without difficulty, although she has marked weakness. LABORATORY DATA: Showed a white cell count of 6000, hemoglobin 13, hematocrit 42, MCV 93, and platelet count 248,000. Her chemistry showed that her serum sodium was 143, potassium 4.9, chloride 105, bicarbonate 32, anion gap of 6, BUN 21, creatinine 1.4, estimated GFR was 36 mL per minute. Her glucose was 90, calcium was 9.3, magnesium 2. Total bilirubin, AST, ALT, alkaline phosphatase were normal. Total protein is 6.5 and albumin 3. Her urinalysis was essentially unremarkable and toxic screen was unremarkable. Chest x-ray showed no acute abnormalities seen and her CT scan of the head showed that the ventricles are mildly prominent relative degree of cortical volume loss, although this may be related to central atrophy communicating hydrocephalus mucosa an identical imaging appearance, otherwise no evidence of acute intracranial process, white matter changes likely due to chronic small vessel disease. The patient was admitted and started on IV fluid after receiving a liter of fluid in the Emergency Room, was continued on all other medication. ASSESSMENT AND PLAN: In summary, this is an 79-year-old female patient who was admitted with acute confusional state, likely due to metabolic encephalopathy, dehydration with elevated BUN and creatinine. Her baseline creatinine is 0.9 mg/dL. She has obviously multiple other medical problems including chronic obstructive pulmonary disease, history of pulmonary embolism, morbid obesity, Crohn's disease, hypothyroidism and gastroesophageal reflux disease. JACQUELINE ALFONSO MD DR: SHANA/caryn JOB#: [id number] / [id number]
[2019-10-21 19:00] VITALS: BP 99/37
[2019-10-21] MEDS: POTASSIUM CL 20MEQ D5-0.2%NACL 1,000 ML IV SCH (19:10)
[2019-10-21] MEDS: MELATONIN 3 MG TABLET PO SCH (20:57)
[2019-10-21] MEDS: traZODone 50 MG TABLET. PO SCH (20:57)
[2019-10-21] MEDS: SERTRALINE 50 MG TABLET. PO SCH (20:58)
[2019-10-21 23:00] VITALS: BP 108/56
--- NOTE | 2019-10-21 23:20 | PN ---
DATE: 10/21/2019 SUBJECTIVE: The patient was admitted yesterday with increased confusion, marked weakness and inability to walk. She was found to be dehydrated and she was also noted to have difficulty swallowing. When I saw her this afternoon, she was apparently more awake, alert, although obviously continued to be confused. PHYSICAL EXAMINATION: GENERAL: When I examined her, she looked well and was clearly in no apparent respiratory distress. No pallor, jaundice, cyanosis, or thyromegaly. No jugular venous distension. No lower limb edema. VITAL SIGNS: Her heart rate was 104, blood pressure was 101/42, temperature was 98.9, respiratory rate was 20, and oxygen saturation at 95% on 2 liters of oxygen. The rest of clinical examination is stable. Her intake over the last 24 hours was 800. LABORATORY DATA: Showed a serum sodium 146, potassium 4.1, chloride 107, bicarbonate 33, anion gap of 6, BUN 18, creatinine 1.3, estimated GFR was 39 mL per minute. Her glucose was 80, calcium was 8.4. Her white cell count is 5100, hemoglobin 11, hematocrit 36, MCV 94 and platelet count 215,000. ASSESSMENT AND PLAN: In summary, this is an 79-year-old female patient who was admitted with altered mental status, was found dehydrated. She has also had difficulty swallowing. Speech therapist was consulted and they will evaluate her tomorrow. I will change the IV fluid to D5 quarter saline with 20 mEq of potassium chloride. I discontinued her Lasix and we will consult Dr. Valdivia to assist with her management. JACQUELINE ALFONSO MD DR: SHANA/caryn JOB#: [id number] / [id number]
--- NOTE | 2019-10-22 02:00 | NUR ---
pt was resting at shift change. pt has been pleasant most of the night. during med pass pt was able to take meds whole one at a time floated in chocloate pudding or followed by water. pt has been incont through the night. had a lg diarrhea bm required total bed change. pt was agitated during multiple occurrences of getting her cleaned up. pt doesnt not like cold or sudden touch.
[2019-10-22 03:00] VITALS: BP 118/57
[2019-10-22 05:39] LABS: CALCIUM 8.3 mg/dL (8.5-10.1); GFR 53.2; MAGNESIUM 1.8 mg/dL (1.8-2.4); POTASSIUM 4.2 mmol/L (3.5-5.1)
[2019-10-22] MEDS: LEVOTHYROXINE 50 MCG TABLET PO SCH (05:50)
[2019-10-22] MEDS: POTASSIUM CL 20MEQ D5-0.2%NACL 1,000 ML IV SCH ×2 (07:38→20:16)
[2019-10-22 08:15] VITALS: BP 98/47
[2019-10-22] MEDS: POLYVINYL ALCOHOL 1.4% OPHTH SOLUTION 15ML BOTTLE. OU SCH ×2 (09:17→20:16)
[2019-10-22] MEDS: APIXABAN 5 MG TABLET. PO SCH ×2 (09:18→20:16)
[2019-10-22] MEDS: MESALAMINE 400 MG CAP.DRTAB. PO SCH ×2 (09:18→20:16)
[2019-10-22] MEDS: POTASSIUM CHLORIDE 20 MEQ TABLET.ER. PO SCH (09:18)
[2019-10-22] MEDS: DIVALPROEX 125 MG CAP.SPRINK PO SCH ×2 (09:18→20:15)
[2019-10-22] MEDS: CETIRIZINE HCL 10 MG TABLET PO SCH (09:18)
[2019-10-22 11:20] VITALS: BP 114/53
--- NOTE | 2019-10-22 12:04 | NUR ---
Pt sitting up in bed, eating pureed lunch, some assistance required for set up. Pt took morning meds in oatmeal, no difficulty swallowing. Speech therapy called, they will see pt tomorrow. Pt pleasant; napped part of morning. Son and [id number] in to see pt; spouse supposed to visit later today. Pt has not voiced any concerns. Will continue to monitor.
--- NOTE | 2019-10-22 13:23 | NUR ---
Pt ended up refusing lunch, 0% eaten. Dr. Valdivia in to see pt. Ammonia level ordered. Changed brief and repositioned pt. Will continue to monitor.
--- NOTE | 2019-10-22 13:41 | NUR ---
Spouse in to visit pt. Labs drawn. Therapy will return to unit to work with pt.
[2019-10-22 15:00] VITALS: BP 100/46
--- NOTE | 2019-10-22 15:58 | CONS ---
DATE OF CONSULTATION: 10/21/2019 REFERRING PHYSICIAN: Dr. Ruff. REASON FOR CONSULTATION: Acute mental status changes. HISTORY OF PRESENT ILLNESS: This is an 79-year-old right-handed female who is a resident of a [facility] was admitted to Emergency Room on 10/20/2019 on account of generalized weakness, difficulty to walk and increased confusion. The patient is known to have history of dementia, probably of Alzheimer type was found dehydrated. According to the nursing staff, the patient has been weak and not able to communicate, away from her baseline one day prior to this admission. During the interview, the patient was not able to communicate or express any complaints. The patient is able to communicate and able to say some words and using a walker on her own, but lately because of generalized weakness, she is not able to walk or use her walker and she needed assistance for ambulation. 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 PAST MEDICAL HISTORY: Significant for dementia of Alzheimer type, gastroesophageal reflux disease, COPD, pulmonary embolism, hypothyroidism, and depressions. PAST SURGICAL HISTORY: Positive for appendectomy. FAMILY HISTORY: Unobtainable. SOCIAL HISTORY: The patient is a resident at [facility]. There is no history of smoking, alcohol drinking, or illicit drug use. CURRENT HOME MEDICATIONS: Prior to the admission include albuterol inhaler, apixaban, Tylenol, valproic acid, furosemide, Symbicort inhaler, famotidine, vitamin D. ALLERGIES: PENICILLIN, CEPHALEXIN, CODEINE, METHYLPREDNISOLONE, AND PREDNISONE. REVIEW OF SYSTEMS: A 10-point review of system was performed as mentioned above in history of present illness and the patient is not able to communicate or answer any questions at this time. PHYSICAL EXAMINATION: GENERAL: Well-developed, well-nourished female, not in acute distress. She weighs 92.4 kilos. VITAL SIGNS: Blood pressure 170/64, respiratory rate 20, pulse is 85 and regular, oxygen saturation is 91 on 2 liters via nasal cannula and temperature 98.2. HEENT: Normocephalic, atraumatic, otherwise unremarkable. NECK: Supple. Negative for carotid bruit, lymphadenopathy or thyromegaly. LUNGS: With diminished breath sounds, but no wheezing or rales. CARDIOVASCULAR: Regular rate and rhythm, normal S1, S2. There is no S3, S4 or murmur. ABDOMEN: Soft. Bowel sounds positive. EXTREMITIES: Negative for cyanosis, clubbing, pitting edema. NEUROLOGIC: MENTAL STATUS: The patient is awake and follows one simple command, but not able to communicate and/or answer any questions. Further evaluation is limited at this time. CRANIAL NERVES: Pupils are equal and reactive to light and accommodation. The extraocular movements are slow. No nystagmus. There is no facial motor or sensory deficit. Hearing appeared to be intact. The palate is elevated symmetrically. Sternocleidomastoid muscles are powerful bilaterally. The patient shrugs her shoulder passively. She is not able to protrude her tongue. MOTOR EXAMINATION: No focal muscle bulk wasting. The tone is normal. The strength is passively 4/5. Sensory examination revealed normal pinprick and light touch senses throughout. Deep tendon reflexes were hypoactive with absent Achilles responses. Gait not tested. LABORATORY DATA: CBC revealed white blood cells of 5100, hemoglobin 11.3, hematocrit 36.1, platelet count 215,000. Chemistry revealed sodium of 146, potassium 4.1, chloride 107, CO2 of 33, BUN 18, creatinine 1.3. On admission, BUN was 21 and creatinine 1.4. Current glucose is 80 and calcium 8.4. Urinalysis is negative for urinary tract infections. DIAGNOSTIC DATA: Initial nonenhanced CT scan revealed as mentioned above in history of present illness and chest x-ray revealed no acute cardiopulmonary process. IMPRESSION: 1. Acute encephalopathy of uncertain etiology. Metabolic encephalopathy, dehydration, and possible ischemic events should be ruled out. 2. History of dementia, probably of Alzheimer type. 3. Multiple medical problems include vitamin D deficiency, chronic obstructive pulmonary disease, pulmonary embolism, and gastroesophageal reflux disease. 4. Generalized weakness. RECOMMENDATIONS: 1. Careful hydrations. 2. Continue with current management initiated with Dr. Ruff. 3. We will call her about her baseline of mental status. 4. Electroencephalogram. We will check ammonia level, if has not been done. M Evelin CISNEROS MD DR: TOMASA/caryn JOB#: [id number] / [id number]
[2019-10-22 18:23] VITALS: BP 122/54
[2019-10-22 20:00] VITALS: BP 101/53
[2019-10-22] MEDS: traZODone 50 MG TABLET. PO SCH (20:15)
[2019-10-22] MEDS: SERTRALINE 50 MG TABLET. PO SCH (20:15)
[2019-10-22] MEDS: MELATONIN 3 MG TABLET PO SCH (20:16)
--- NOTE | 2019-10-22 22:57 | PN ---
DATE: SUBJECTIVE: The patient is resting slightly propped up in bed, in no apparent distress. She continued to be extremely confused, but refused to participate in physical therapy. She ate all of her breakfast, refused to eat lunch. She apparently was seen by Dr. Valdivia this morning, but was not cooperative. PHYSICAL EXAMINATION: GENERAL: When I examined her, she was pale. No jaundice, cyanosis or thyromegaly. No jugular venous distention. No limb edema. VITAL SIGNS: Her heart rate was 80, blood pressure 100/46, temperature was 99.8, respiratory rate was 20 and oxygen saturation was 99% on 2 liters of oxygen. HEAD, EYES, EARS, NOSE AND THROAT: Showed normocephalic, atraumatic. NECK: Supple. HEART: Showed normal first and second heart sounds. No gallop, rub or murmur. CHEST: Clear to auscultation. No crepitation or rhonchi. ABDOMEN: Distended, soft, nontender. NEUROLOGIC: She is very confused, disoriented, but without any obvious lateralizing sign. Her intake was 800, no output was recorded. LABORATORY DATA: Her lab work this morning showed a serum sodium 144, potassium 4.2, chloride 106, bicarbonate 33, anion gap of 5, BUN 10, creatinine 1, estimated GFR was 53 mL per minute. Her glucose 93, calcium was 8.3, magnesium was 1.8. Ammonia was 10. ASSESSMENT: 1. Altered mental status, the cause of which is not clear 2. Dehydration and her kidney function so far improved. Her creatinine came down from 1.3-1.21. She did have also dysphagia for which she did consult the speech therapy. The patient has multiple other medical problems including; A. Chronic obstructive pulmonary disease. B. Hypothyroidism. C. Gastroesophageal reflux disease. D. Crohn's disease and history of pulmonary embolism. PLAN: To continue with IV fluid. Continue with PT, OT. We did consult the speech therapist. I am wondered whether repeating her CT scan might be revealing. JACQUELINE ALFONSO MD DR: SHANA/caryn JOB#: [id number] / [id number]
[2019-10-23] VITALS: BP 98/49
--- NOTE | 2019-10-23 01:19 | PN ---
DATE: SUBJECTIVE: The patient continues to be confused and not able to communicate verbally. Her appetite has been worsening, probably due to difficulty swallowing. OBJECTIVE: GENERAL: Well-developed, well-nourished female, not in acute distress. VITAL SIGNS: Blood pressure 106/56, respiratory rate 20, pulse is 86, oxygen saturation is 96% on 2 liters by nasal cannula, temperature 98.4. HEENT: Normocephalic, atraumatic, otherwise unremarkable. NECK: Supple. Negative for carotid bruit, lymphadenopathy, JVD, or thyromegaly. CHEST: With diminished breath sounds, but no rales or wheezing. CARDIOVASCULAR: Regular rate and rhythm, normal S1, S2. There is no S3, S4, or murmur. ABDOMEN: Soft. Bowel sounds positive. EXTREMITIES: Negative for cyanosis, clubbing, or edema. NEUROLOGICAL EXAM: Mental Status: The patient is awake, follows 1 simple-step commands. She also questions with moving her head up and down as if she said yes or no. She is not able to communicate or talk. Apparently, the patient had her breakfast late and she is not able to eat a lunch today. Further evaluation for mental status is limited because of not communicating. Cranial nerves: The pupils are equal and reactive to light. The ocular movements are slow without nystagmus. No facial motor or sensory deficits. Hearing appears to be intact. Motor examination: No focal muscle bulk was seen. The tone was normal. The strength was 4/5 throughout. Sensory examination revealed normal pinprick and light touch senses. Deep tendon reflexes were symmetric and hypoactive without pathology responses. Gait not tested. LABORATORY DATA: CBC revealed white blood cells of 144, potassium 4.2, chloride 106, CO2 of 33, BUN 10, creatinine 1, glucose 93, calcium 9.3, and magnesium is 1.8. Troponin level is normal and liver enzymes are normal as well. IMPRESSION: 1. Acute mental status changes with confusion and difficulty to communicate and talk. However, there are no focal motor or sensory deficits. 2. Acute encephalopathy, probably metabolic, may have contributed to the current symptoms; however, central nervous system ischemic events could not be ruled out entirely. 3. Multiple medical problems include history of dementia, probably of Alzheimer type, hypothyroidism, vitamin D deficiency, chronic obstructive pulmonary disease, pulmonary embolism, gastroesophageal reflux disease, and generalized weakness. RECOMMENDATIONS: 1. Continue with current management initiated by Dr. Ruff. 2. Await for ammonia level. 3. Physical therapy and speech therapy. 4. We will repeat head CT scan tomorrow morning to rule out any ischemic changes as infarct. M Evelin CISNEROS MD DR: TOMASA/caryn JOB#: [id number] / [id number]
[2019-10-23 04:00] VITALS: BP 122/55
[2019-10-23] MEDS: LEVOTHYROXINE 50 MCG TABLET PO SCH (06:20)
[2019-10-23 07:01] VITALS: BP 122/55
[2019-10-23] MEDS: POLYVINYL ALCOHOL 1.4% OPHTH SOLUTION 15ML BOTTLE. OU SCH ×2 (08:24→20:37)
[2019-10-23] MEDS: POTASSIUM CHLORIDE 20 MEQ TABLET.ER. PO SCH (08:25)
[2019-10-23] MEDS: MESALAMINE 400 MG CAP.DRTAB. PO SCH ×2 (08:25→20:37)
[2019-10-23] MEDS: APIXABAN 5 MG TABLET. PO SCH ×2 (08:25→20:38)
[2019-10-23] MEDS: DIVALPROEX 125 MG CAP.SPRINK PO SCH ×2 (08:26→20:37)
[2019-10-23] MEDS: CETIRIZINE HCL 10 MG TABLET PO SCH (08:26)
[2019-10-23] MEDS: POTASSIUM CL 20MEQ D5-0.2%NACL 1,000 ML IV SCH (08:27)
--- NOTE | 2019-10-23 10:07 | RAD ---
Exam performed: CT scan of the head without contrast. Date of Service: 06/03/2020. Comparison: None available. Clinical History: Confusion. Technique: Helical acquisitions are obtained from the foramen magnum to the vertex without intravenous administration of contrast. Findings: There is prominence of cortical sulci and ventricular system compatible with age related atrophy. There are areas of low-attenuation in both periventricular deep white matter suggesting small vessel ischemic changes. Normal diaz-white differentiation is maintained. There is no extra axial fluid collection, intraparenchymal hemorrhage or mass lesion. The visualized portions of the orbits, paranasal sinuses and the mastoid air cells appear clear. The calvarium is intact. Impression: 1. Age-appropriate atrophy without any acute intracranial process. PQRS Compliance Statement: One or more of the following individualized dose reduction techniques were utilized for this examination: 1. Automated exposure control 2. Adjustment of the mA and/or kV according to patient size 3. Use of iterative reconstruction technique Electronically signed by: Zoila Lisa MD (10/23/2019 10:04 AM) [facility]
--- NOTE | 2019-10-23 10:26 | NUR ---
Pt ate 100% of breakfast with my assistance; without assistance she picks at items. Son in to visit this am. Pt went to radiology for CT head via bed; two of us transferred her to table and back; pt provided minimal assistance with turns and transfers. Bed bath given; linens, gown, and brief changed; again, pt minimally assisted. Now resting in bed, asleep.
[2019-10-23 11:03] VITALS: BP 100/46
--- NOTE | 2019-10-23 12:44 | NUR ---
Pt tolerated 100% of lunch with assistance. Son and grandkids in to visit with pt. Will continue to monitor.
--- NOTE | 2019-10-23 12:54 | PN ---
DATE: REFERRING PHYSICIAN: Dr. Ruff. SUBJECTIVE: The patient denies any new medical or neurological complaints. She did not recall if any family members seen her since yesterday; however, the patient was visiting by her yesterday and her son this morning, but she did not recall that. She denies any chest pain, headache, shortness of breath or palpitation, dysarthria or dysphagia. The patient has been able to talk and converse and communicate without any problems. She has been eating well. Repeated head CT scan revealed no evidence of acute intracranial process and stable since admission, no change from previous CT scan done at the day of admission. OBJECTIVE: GENERAL: Well-developed, well-nourished female, not in acute distress. VITAL SIGNS: Blood pressure 100/46, respiratory rate 16, pulse is 79, temperature 98.8, oxygen saturation is 96% on 2 liters by nasal cannula. HEENT: Normocephalic, atraumatic, otherwise unremarkable. NECK: Supple. Negative for carotid bruit, lymphadenopathy or thyromegaly. LUNGS: Clear to A and P. CARDIOVASCULAR: Regular rate and rhythm, normal S1, S2. ABDOMEN: Soft. Bowel sounds positive. EXTREMITIES: Negative for cyanosis, clubbing or edema. NEUROLOGICAL EXAM: Mental Status: The patient is alert and oriented to herself and place. She knows she is in [place]. She was not able to name the hospitals or the president. Memory, judgment, and abstracting thinking are fair. The patient denies hallucination or delusion. Cranial nerves are intact. No focal motor or sensory deficit. The strength is 4/5 throughout. Sensory examination revealed normal pinprick and light touch senses throughout. Deep tendon reflexes were symmetric and hyperactive with absent Achilles responses. Gait not tested. IMPRESSION: 1. Acute encephalopathy -- improved, probably represent metabolic process. Repeating head CT scan revealed no evidence of acute intracranial process. 2. Multiple medical problems include vitamin D deficiency, chronic obstructive pulmonary disease, history of pulmonary embolism, gastroesophageal reflux disease, generalized weakness, hypothyroidism, with normal ammonia level. RECOMMENDATIONS: 1. Continue her current management initiated by Dr. Ruff. 2. Physical therapy as tolerated. M Evelin CISNEROS MD DR: TOMASA/caryn JOB#: [id number] / [id number]
[2019-10-23 15:20] VITALS: BP 114/50
[2019-10-23 19:00] VITALS: BP 110/59
[2019-10-23] MEDS: SERTRALINE 50 MG TABLET. PO SCH (20:37)
[2019-10-23] MEDS: traZODone 50 MG TABLET. PO SCH (20:38)
[2019-10-23] MEDS: MELATONIN 3 MG TABLET PO SCH (20:38)
--- NOTE | 2019-10-23 21:52 | PN ---
DATE: 10/23/2019 SUBJECTIVE: The patient is definitely more awake, alert, though continued to be confused. She is very weak. She was only able to walk for a short distance with a shuffling gait and being very unsteady; however, generally, she is much better than yesterday, which she spent the whole night and day in the bed, refused to participate with physical therapy. PHYSICAL EXAMINATION: GENERAL: When I examined her this afternoon, she looked pale, but no jaundice, cyanosis or thyromegaly. No jugular venous distention. No limb edema. VITAL SIGNS: Her heart rate was 79, blood pressure was 100/46, temperature was 98.8, respiratory rate 16, and oxygen saturation was 96% on 2 liters of oxygen. The rest of clinical exam is stable. Her intake was 600, no output was recorded. LABORATORY DATA: Her lab work this morning showed her serum sodium to be 144, potassium 4.2, chloride 106, bicarbonate 33, anion gap of 5, BUN 10, creatinine 1, estimated GFR was 53 mL per minute. Her white cell count was 5100, hemoglobin 11, hematocrit 36, MCV 94 and platelet count 215,000. Her urinalysis was essentially unremarkable. Toxic screen was essentially negative. ASSESSMENT: 1. Altered mental status, the cause of which is not clear. 2. Dehydration has improved. Her creatinine is down from 1.3 to 1. 3. Dysphagia, has actually improved. She has eaten her breakfast and lunch without difficulty. 4. The patient has multiple other medical problems including: A. Chronic obstructive pulmonary disease. B. Hypothyroidism. C. Gastroesophageal reflux disease. D. Crohn's disease. E. History of pulmonary embolism. PLAN: To continue with PT, OT. We did consult the speech therapy. JACQUELINE ALFONSO MD DR: SHANA/caryn JOB#: [id number] / [id number]
[2019-10-24] VITALS: BP 107/50
[2019-10-24] MEDS: POTASSIUM CL 20MEQ D5-0.2%NACL 1,000 ML IV SCH ×2 (00:56→13:40)
--- NOTE | 2019-10-24 05:22 | NUR ---
Shift Note: Pt a/o to self (pt pleasant with staff at the beginning of shift but during the night pt was swatting and resisting staff when cleaning and changing brief), VSS, no c/o pain or n/v during shift, IV fluids infusing as ordered, pt continues to be incontinent of urine (this is patients baseline), pt able to take PO medications with pudding (requires encouragement to swallow completely and not pocket).
[2019-10-24] MEDS: LEVOTHYROXINE 50 MCG TABLET PO SCH (05:38)
[2019-10-24 06:00] VITALS: BP 126/4
[2019-10-24] MEDS: DIVALPROEX 125 MG CAP.SPRINK PO SCH (09:03)
[2019-10-24] MEDS: CETIRIZINE HCL 10 MG TABLET PO SCH (09:03)
[2019-10-24] MEDS: APIXABAN 5 MG TABLET. PO SCH (09:03)
[2019-10-24] MEDS: POTASSIUM CHLORIDE 20 MEQ TABLET.ER. PO SCH (09:04)
[2019-10-24] MEDS: MESALAMINE 400 MG CAP.DRTAB. PO SCH (09:04)
[2019-10-24] MEDS: POLYVINYL ALCOHOL 1.4% OPHTH SOLUTION 15ML BOTTLE. OU SCH (09:04)
--- NOTE | 2019-10-24 10:03 | PN ---
DATE: SUBJECTIVE: The patient denies any new medical or neurological complaints. OBJECTIVE: GENERAL: Well-developed, well-nourished female, not in acute distress. VITAL SIGNS: Blood pressure 126/44, respiratory rate 12, pulse is 76 and regular, temperature 97.9, oxygen saturation 94% on 2 liters by nasal cannula. HEENT: Normocephalic, atraumatic, otherwise unremarkable. NECK: Supple. Negative for carotid bruit, lymphadenopathy or thyromegaly. LUNGS: Clear to A and P. CARDIOVASCULAR: Regular rate and rhythm, normal S1, S2. There is no S3, S4 or murmur. ABDOMEN: Soft. Bowel sounds positive. EXTREMITIES: Negative for cyanosis, clubbing or pitting edema. NEUROLOGICAL EXAM: The patient is alert and oriented to herself and to place. His speech is more fluent. There is no language dysfunction. Memory, judgment, and abstract thinking are fair. The patient denies hallucination or delusion. Cranial nerves are intact. No focal motor or sensory deficit. The strength was 4/5 throughout. Sensory examination revealed normal pinprick and light touch senses throughout. Deep tendon reflexes were asymmetric and hypoactive with absent Achilles responses. Gait not tested. IMPRESSION: 1. Acute encephalopathy -- resolved. 2. Dementia, probably of Alzheimer type -- moderate severity. 3. Multiple medical problems include chronic obstructive pulmonary disease, history of pulmonary embolism, gastroesophageal reflux disease, generalized weakness, vitamin D deficiency, hypothyroidism with normal ammonia level. RECOMMENDATIONS: We will continue with current management, initiated by Dr. Ruff, physical therapy as tolerated. The patient is neurologically stable. M Evelin CISNEROS MD DR: TOMASA/caryn JOB#: [id number] / [id number]
[2019-10-24 13:02] VITALS: BP 109/58
--- NOTE | 2019-10-24 15:56 | NUR ---
Discharge Note: [facility] BED4 Discharge instructions and discharge home medications reviewed with [facility] the patients residence prior to admission. Discharge package prepared by Case Management was sent with the patient. Patient left the unit via wheelchair accompanied by [facility] [place] personnel. All patient belongings were sent with the patient. Discontinued periperal IV line.
[2019-10-27] MEDS ORDERED: CHOLECALCIFEROL (VITAMIN D3) 50,000 UNIT CAPSULE PO SCH (09:00)
== END 2019-10-24 15:30 | DRG 70 ==
LOC: ER 18:19 → ICU 20:23
PROVIDERS: ADMIT Internal Medicine; ATTEND Internal Medicine
DX: G93.41 Metabolic encephalopathy (principal); N17.0 Acute kidney failure with tubular necrosis; K50.90 Crohn's disease, unspecified, without complications; F41.9 Anxiety disorder, unspecified; J44.9 Chronic obstructive pulmonary disease, unspecified; F02.80 Dementia in other diseases classified elsewhere, unspecified severity, without behavioral disturbance, psychotic disturbance, mood disturbance, and anxiety; E03.9 Hypothyroidism, unspecified; K21.9 Gastro-esophageal reflux disease without esophagitis; G30.9 Alzheimer's disease, unspecified; E86.0 Dehydration; G47.00 Insomnia, unspecified; E66.01 Morbid (severe) obesity due to excess calories; E55.9 Vitamin D deficiency, unspecified; R13.10 Dysphagia, unspecified; Z88.6 Allergy status to analgesic agent; Z88.1 Allergy status to other antibiotic agents; Z88.0 Allergy status to penicillin; Z88.8 Allergy status to other drugs, medicaments and biological substances; Z90.49 Acquired absence of other specified parts of digestive tract; Z86.711 Personal history of pulmonary embolism; Z68.32 Body mass index [BMI] 32.0-32.9, adult
CPT/HCPCS: 36415; 51701; 70450; 71045; 80048; 80053; 80164; 81001; 82140; 83735; 83880; 84484; 85025; 93005; 96360; 96361; 99285; J7613; 92610; 97110; 97116; 97530; 97535; J7030